=== PATIENT | male | born 1950 | race Caucasian/White ===

== ENCOUNTER → 2023-11-30 07:25 | Outpatient (REF) | payer BC, SELFPAY | LOC: RAD 07:25 | PROVIDERS: ATTENDING PHYSICIAN Physician Assistant | DX: H53.9 Unspecified visual disturbance (principal); R51.9 Headache, unspecified; I10 Essential (primary) hypertension; E78.5 Hyperlipidemia, unspecified | CPT/HCPCS: 70450 ==

== ENCOUNTER → 2023-12-24 20:10 | Outpatient (REF) | payer BC, SELFPAY | LOC: MRI 3T 20:10 | PROVIDERS: ATTENDING PHYSICIAN Internal Medicine; FAMILY PHYSICIAN Physician Assistant | DX: R29.810 Facial weakness (principal); R51.9 Headache, unspecified; R20.0 Anesthesia of skin | CPT/HCPCS: 70553; A9575 ==

== ENCOUNTER → 2024-03-14 10:27 | Outpatient (REF) | payer BC, SELFPAY | LOC: MRI 3T 10:27 | PROVIDERS: ATTENDING PHYSICIAN Psychiatry & Neurology Neurology; FAMILY PHYSICIAN Physician Assistant | DX: H54.7 Unspecified visual loss (principal) | CPT/HCPCS: 70544; 70549; A9585 ==

== ENCOUNTER 2024-04-24 10:50 | Emergency (ER) | payer BC, SELFPAY ==
[2024-04-24 10:52] VITALS: BP 123/78; BMI 30.6
[2024-04-24 11:58] LABS: % Basophils 0.5 % (0-2); % Eosinophils 1.7 % (0-6); % Immature Granulocytes 0.3 % (0-0.5); % Lymphocytes 23.3 % (20.5-51.1); % Monocytes 9.6 % (1.7-9.3); % Neutrophils 64.6 % (42.2-75.2); Absolute Eosinophils 0.1 10^3/uL (0-0.7); Absolute Lymphocytes 1.4 10^3/uL (1.2-3.4); Absolute Monocytes 0.6 10^3/uL (0.1-0.6); Absolute Neutrophils 3.8 10^3/uL (1.4-6.5); Hematocrit 41.2 % (39.0-52.0); Hemoglobin 14.4 g/dL (13.0-18.0); Nucleated Red Blood Cells % 0 % (-); Platelet Count 185 10^3/uL (130-400); Red Blood Cell Count 5.15 10^6/uL (4.70-6.10); Red Cell Dist. Width 13.4 % (11.5-14.5); White Blood Cell Count 5.9 10^3/uL (4.8-10.8)
[2024-04-24 12:14] VITALS: BP 117/78; BP 123/76; BP 127/77; PULSE 76; PULSE 82; PULSE 86
[2024-04-24 12:20] LABS: Troponin I < 0.012 ng/ml
[2024-04-24] MEDS: NSS 500 IV ×2 (12:26→12:52)
[2024-04-24 12:30] LABS: ALT (SGPT) 19 U/L (0-50); AST (SGOT) 24 U/L (17-59); Albumin 4.6 g/dl (3.5-5.0); Alkaline Phosphatase 70 U/L (38-126); Blood Urea Nitrogen 23 mg/dl (9-20); Calcium 9.4 mg/dl (8.4-10.2); Carbon Dioxide 23 mmol/L (22-30); Chloride 106 mmol/L (98-107); Creatine Phosphokinase 87 U/L (55-170); Estimated Creatinine Clearance 73 ml/min; Glucose 109 mg/dl (70-99); Potassium 4.5 mmol/L (3.5-5.1); Sodium 137 mmol/L (135-145); Total Bilirubin 0.8 mg/dl (0.2-1.3); eGFR > 60.00
--- NOTE | 2024-04-24 12:37 | ED.GENMED ---
History of Present Illness
<Tashia Brown PA-C - Last Filed: 04/29/24 18:08>
General
Chief Complaint: Fainting/Passed Out
Source: patient and family
Exam Limitations: none
Time Seen by Provider: 04/24/24 11:03
Nursing documentation reviewed up to this point in time: agreed with
History of Present Illness
History of Present Illness:
pt is a 73 y/o M with h/o HTN, hld, CVA with L eye vision loss and some facial numbness/weakness on aspirin
here with syncope this morning
pt says he did some exercise yesterday; more than usual with a 30 min walk and then rock climbing which he hasn't done in 2 months
he felt ok but then thi smornign when he woke up he felt tired, his legs felt generally tired
he told this to his at 7 am and she recommended he drink fluids and drink a liquid iv but he didn't
instead he went outside to water the garden and when he came back in he was bent over to pet the cat and stood up and felt dizzy/lightheaded and nearly fully passed out, falling into the closet doors; helped him to sit down
he was able to go to [employer] but while there he felt some nauesa and so his wanted him checked out
he has not had ehadache, room spinning dizziness
chest pain, shortness of breath, belly pain, diarrhea, urinary sypmtoms, focal weakness or numbness
he chronic has some facialnumbness from his previous stroke a few months ago
Past History
<Tashia Brown PA-C - Last Filed: 04/29/24 18:08>
Past History
ED Past Medical History: HTN, Hypercholesterolemia, Psychiatric (Depression), Other (prostate ca) and Other (Pituitary disorder)
ED Past Surgical History: Tonsilectomy, Urological (Prostatectomy) and Other (Right inguinal hernia repair)
Social History
Tobacco: Non-smoker
Alcohol: Occasional
Drug: None
Personal:
Living: with family
Employment: Employed
Family History
Family History: Early CAD
Review of Systems
<aTshia Brown PA-C - Last Filed: 04/29/24 18:08>
Review of Systems
Allergies reviewed?: Yes
All Other Systems: Not applicable
Phy Exam
<Tashia Brown PA-C - Last Filed: 04/29/24 18:08>
Physical Exam
Physical Exam:
GENERAL: Alert , in no apparent distress
HEAD: NCAT
EYE: pupils equal and reactive, no nystagmus, no photophobia
NECK: Supple,full rom, nontender
ENT: o/p clr, mmm.
CARDIAC: Regular rate and rhythm . no edema
LUNGS: Clear breath sounds bilaterally, no acute respiratory distress, no wheezes/rales/rhonchi
ABDOMEN: Soft, without focal tenderness, no r/g, no cvat
NEUROLOGICAL: Alert and orientedx 4, cn intact, very subtle flattening of L nasolabial fold; full strength; , 5/5 strength in UE/LE, sensation intact, romberg neg, ambulates without assistance, neg pronator drift
SKIN: Warm and dry, skin intact.
MUSCULOSKELETAL: No edema, well perfused.
PSYCH: Normal and appropriate interaction. perhaps mildly anxious
Course
<Tashia Brown PA-C - Last Filed: 04/29/24 18:08>
Orders/Labs/Results
Orders:
Orders
04/24/24 10:55
Electrocardiogram (*1) Urgent
Reason for Study: Chest Pain
EKG- Treatment ONCE
04/24/24 11:37
Orthostatic VS- Treatment ONCE
0.9% Sodium Chloride 500 ml [Nss] 500 ml IV BOLUS
04/24/24 11:47
CPK [Creatine Phosphokinase] Urgent
Complete Blood Count/With Diff Urgent
Comprehensive Metabolic Panel Urgent
Troponin I Urgent
04/24/24 12:46
0.9% Sodium Chloride 500 ml [Nss] 500 ml IV BOLUS
04/24/24 12:56
Urinalysis Reflex To Culture Urgent
Date Specimen was Collected: 04/24/24
Time Specimen was Collected: 12:03
04/24/24 14:34
COVID-19 Antigen Urgent
Source: Nasal Swab
04/24/24 14:45
Electrocardiogram (*1) Urgent
Reason for Study: Fatigue / Weakness
EKG- Treatment ONCE
CR Chest - 2 Views Urgent
Comment:
Reason For Exam: syncpoe
04/24/24 14:51
CT Head W/o Iv Contrast Urgent
Comment:
Reason For Exam: headache, lightheaded, passed out
04/24/24 15:15
0.9% Sodium Chloride 1000 ml [Nss] 1,000 ml IV BOLUS
04/24/24 16:35
Acetaminophen [Tylenol] 650 mg PO NOW STA
Abnormal Lab Results
04/24/24 04/24/24
11:47 12:56
Monocytes % 9.6 H %
(1.7-9.3)
BUN 23 H mg/dl
(9-20)
Glucose 109 H mg/dl
(70-99)
Urine Glucose 3+ A
(Negative)
04/24/24 11:47
04/24/24 11:47
Vital Signs
Initial and Last Documented VS:
Initial Vital Signs
Temp Pulse Resp BP Pulse Ox
98.4 F 86 20 123/78 99
04/24/24 10:52 04/24/24 10:52 04/24/24 10:52 04/24/24 10:52 04/24/24 10:52
Last Documented Vital Signs
Temp Pulse Resp BP Pulse Ox
98.5 F 86 16 115/71 99
04/24/24 17:47 04/24/24 17:47 04/24/24 17:47 04/24/24 17:47 04/24/24 17:47
<Florida Louis MD - Last Filed: 04/24/24 13:40>
Orders/Labs/Results
Orders:
Orders
04/24/24 10:55
Electrocardiogram (*1) Urgent
Reason for Study: Chest Pain
EKG- Treatment ONCE
04/24/24 11:37
Orthostatic VS- Treatment ONCE
0.9% Sodium Chloride 500 ml [Nss] 500 ml IV BOLUS
04/24/24 11:47
CPK [Creatine Phosphokinase] Urgent
Complete Blood Count/With Diff Urgent
Comprehensive Metabolic Panel Urgent
Troponin I Urgent
04/24/24 12:46
0.9% Sodium Chloride 500 ml [Nss] 500 ml IV BOLUS
04/24/24 12:56
Urinalysis Reflex To Culture Urgent
Date Specimen was Collected: 04/24/24
Time Specimen was Collected: 12:03
04/24/24 14:34
COVID-19 Antigen Urgent
Source: Nasal Swab
04/24/24 14:45
Electrocardiogram (*1) Urgent
Reason for Study: Fatigue / Weakness
EKG- Treatment ONCE
CR Chest - 2 Views Urgent
Comment:
Reason For Exam: syncpoe
04/24/24 14:51
CT Head W/o Iv Contrast Urgent
Comment:
Reason For Exam: headache, lightheaded, passed out
04/24/24 15:15
0.9% Sodium Chloride 1000 ml [Nss] 1,000 ml IV BOLUS
04/24/24 16:35
Acetaminophen [Tylenol] 650 mg PO NOW STA
Abnormal Lab Results
04/24/24 04/24/24
11:47 12:56
Monocytes % 9.6 H %
(1.7-9.3)
BUN 23 H mg/dl
(9-20)
Glucose 109 H mg/dl
(70-99)
Urine Glucose 3+ A
(Negative)
04/24/24 11:47
04/24/24 11:47
Vital Signs
Initial and Last Documented VS:
Initial Vital Signs
Temp Pulse Resp BP Pulse Ox
98.4 F 86 20 123/78 99
04/24/24 10:52 04/24/24 10:52 04/24/24 10:52 04/24/24 10:52 04/24/24 10:52
Last Documented Vital Signs
Temp Pulse Resp BP Pulse Ox
98.5 F 86 16 115/71 99
04/24/24 17:47 04/24/24 17:47 04/24/24 17:47 04/24/24 17:47 04/24/24 17:47
<WES Johnson - Last Filed: 04/24/24 23:24>
Orders/Labs/Results
Orders:
Orders
04/24/24 10:55
Electrocardiogram (*1) Urgent
Reason for Study: Chest Pain
EKG- Treatment ONCE
04/24/24 11:37
Orthostatic VS- Treatment ONCE
0.9% Sodium Chloride 500 ml [Nss] 500 ml IV BOLUS
04/24/24 11:47
CPK [Creatine Phosphokinase] Urgent
Complete Blood Count/With Diff Urgent
Comprehensive Metabolic Panel Urgent
Troponin I Urgent
04/24/24 12:46
0.9% Sodium Chloride 500 ml [Nss] 500 ml IV BOLUS
04/24/24 12:56
Urinalysis Reflex To Culture Urgent
Date Specimen was Collected: 04/24/24
Time Specimen was Collected: 12:03
04/24/24 14:34
COVID-19 Antigen Urgent
Source: Nasal Swab
04/24/24 14:45
Electrocardiogram (*1) Urgent
Reason for Study: Fatigue / Weakness
EKG- Treatment ONCE
CR Chest - 2 Views Urgent
Comment:
Reason For Exam: syncpoe
04/24/24 14:51
CT Head W/o Iv Contrast Urgent
Comment:
Reason For Exam: headache, lightheaded, passed out
04/24/24 15:15
0.9% Sodium Chloride 1000 ml [Nss] 1,000 ml IV BOLUS
04/24/24 16:35
Acetaminophen [Tylenol] 650 mg PO NOW STA
Abnormal Lab Results
04/24/24 04/24/24
11:47 12:56
Monocytes % 9.6 H %
(1.7-9.3)
BUN 23 H mg/dl
(9-20)
Glucose 109 H mg/dl
(70-99)
Urine Glucose 3+ A
(Negative)
04/24/24 11:47
04/24/24 11:47
Vital Signs
Initial and Last Documented VS:
Initial Vital Signs
Temp Pulse Resp BP Pulse Ox
98.4 F 86 20 123/78 99
04/24/24 10:52 04/24/24 10:52 04/24/24 10:52 04/24/24 10:52 04/24/24 10:52
Last Documented Vital Signs
Temp Pulse Resp BP Pulse Ox
98.5 F 86 16 115/71 99
04/24/24 17:47 04/24/24 17:47 04/24/24 17:47 04/24/24 17:47 04/24/24 17:47
<Tashia Borwn PA-C - Last Filed: 04/29/24 18:08>
MDM/Problems Addressed
Differential Diagnosis Includes:
syncope, near syncope, dizziness, orthostasis, vertigo, covid, electrolyte problems, rhabdo
MDM/Problems Addressed:
73 y/o M with h/o cva L facial numbness/vision changes chronically, htn, hld
no thinners, on baby asa
here with lightheadedness and legs feeling tired this morning
then passed out after kneeling down to pet the cat
has recovered but still feels lightheaded ana with walking
thinks he overdid it yesterday exercising
no trouble breathing, swallowing, no incontinence, no focal weakness
no headache
no chest pain
well appearing, mild anxious
exzm unremarkable
ambulates but seemed a little wobbly when he first stood up
neuro no focal deficits
ekg normal
pt's orthostatics were neg but pt was a little l.ightehaded with standing
suspect he was mildly orthostatic today causing his syncope
will hydrate and recheck
04/24/2024 1414 PM
labs reviewed, mild BUN elevated, normal hg; likely mild dehydration
trop neg
ivf given and pt tolerated walking well
cpk normal
seen by ed attending who agrees with d/c
return precautions
not mra of head/neck was normal last month as screenig becauseof his previous stroke
04/24/2024 1527 PM
Patient started complaining of a mild headache and when I reassessed him he just seemed like he could use another liter of fluid which is likely the cause of his lightheadedness. I did test him for COVID which was negative. Added on a chest x-ray
to evaluate for cardiomegaly
I anticipate discharge home
<WES Johnson - Last Filed: 04/24/24 23:24>
MDM/Problems Addressed
MDM/Problems Addressed:
73 y/o M with h/o cva L facial numbness/vision changes chronically, htn, hld
no thinners, on baby asa
here with lightheadedness and legs feeling tired this morning
then passed out after kneeling down to pet the cat
has recovered but still feels lightheaded ana with walking
thinks he overdid it yesterday exercising
no trouble breathing, swallowing, no incontinence, no focal weakness
no headache
no chest pain
well appearing, mild anxious
exzm unremarkable
ambulates but seemed a little wobbly when he first stood up
neuro no focal deficits
ekg normal
pt's orthostatics were neg but pt was a little l.ightehaded with standing
suspect he was mildly orthostatic today causing his syncope
will hydrate and recheck
04/24/2024 1414 PM
labs reviewed, mild BUN elevated, normal hg; likely mild dehydration
trop neg
ivf given and pt tolerated walking well
cpk normal
seen by ed attending who agrees with d/c
return precautions
not mra of head/neck was normal last month as screenig becauseof his previous stroke
04/24/2024 1527 PM
Patient started complaining of a mild headache and when I reassessed him he just seemed like he could use another liter of fluid which is likely the cause of his lightheadedness. I did test him for COVID which was negative. Added on a chest x-ray
to evaluate for cardiomegaly
I anticipate discharge home
1630: Received sign out pt feeling much better. CT head neg, chest neg . will d/c home as planned
<WES Johnson - Last Filed: 04/24/24 23:24>
*Critical Care Note
Total Time (30-74mins, 75-104mins- exclusive of procedures): Not Applicable
ED Attending Note
<Tashia Brown PA-C - Last Filed: 04/29/24 18:08>
-
Portions of this chart may have been created with voice recognition software.� Occasional wrong word or��sound alike� substitutions may have occurred due to the inherent limitations of voice recognition software.
<[place] Louis MD - Last Filed: 04/24/24 13:40>
ED Attending Note
Patient seen and examined by attending physician: Yes
I performed the substantive portion of visit, reviewed & personally made and approve the management plan that is documented in note by myself or MARLO.: Yes
ED Attending Note:
Patient has a normal neurological exam. Symptoms sound very consistent with presyncope. Patient denies any focal weakness, numbness or any vision changes. We will reassess the patient after he gets IV fluids.
Discharge Plan
Departure
Patient Disposition: Home (Routine Discharge)
Date of Disposition: 04/24/24
Time of Disposition: 17:36
Patient with high blood pressure during this ER visit?: No
Condition: Fair
Covid-19: Not Applicable
Discharge Problem:
Syncope, Dehydration
Instructions: Syncope (Fainting) (DC), Dehydration, Adult ED
Prescriptions:
No Action
multivitamin 1 EACH tablet
2 ea PO DAILY
Patient Comments:
Metabolic Synergy
aspirin 81 MG tablet,delayed release (DR/EC)
81 mg PO DAILY
atenolol 50 MG tablet
50 mg PO DAILY
Patient Comments:
magnesium 500 mg Tablet
500 mg PO DAILY
pravastatin 40 mg Tablet
40 mg PO DAILY
Chelated Calcium 500 mg Tablet
1 mg PO DAILY
niacinamide 500 mg Tablet
500 mg PO DAILY
lisinopril 40 mg Tablet
40 mg PO DAILY
escitalopram oxalate 5 mg Tablet
5 mg PO DAILY
Referrals:
Shannon Mendoza PA-C [Family Provider] -
Activity Restrictions/Additional Instructions:
It seems like her symptoms are probably related to mild dehydration and passing out likely because he stood up fast and dropped her blood pressure. You should make sure to avoid sudden movements like that, stay hydrated, eat a well-balanced diet.
Watch for any worsening symptoms like ascending weakness of your body, trouble breathing or swallowing, chest pain or shortness of breath, repeated passing out episodes, headache or strokelike symptoms and return immediately for these
Otherwise follow-up with your family doctor
Interventions
Interventions:
*Risk Screen - Suicide Last Done: 04/24/24 10:52
*General Assessment Last Done: 04/24/24 12:08
*Neglect/Abuse Screening Last Done: 04/24/24 10:52
ED- Fall Risk Assessment Last Done: 04/24/24 10:52
*ED COVID-19 Vaccine History Last Done: 04/24/24 12:08
*Nursing Disposition Last Done: 04/24/24 17:47
ED- Cardiac Assessment Last Done: 04/24/24 12:08
ED- Neurological Assessment Last Done: 04/24/24 12:08
Discharge Date and Time
Discharge Date/Time: 04/24/24 17:51
Print Language: DUTCH
[2024-04-24 13:00] VITALS: BP 125/83
[2024-04-24 13:09] LABS: Urine Albumin Negative (Neg - Trace); Urine Bilirubin Negative (Negative); Urine Character Clear (Clear); Urine Color Yellow; Urine Glucose 3+ (Negative); Urine Ketone Negative (Negative); Urine Leukocyte Negative (Negative); Urine Nitrite Negative (Negative); Urine Occult Blood Negative (Negative); Urine Urobilinogen Negative (Neg - 1+)
[2024-04-24 14:34] VITALS: BP 111/79
[2024-04-24 14:59] LABS: COVID-19 Antigen Negative (Negative)
[2024-04-24] MEDS: NSS 1000 IV (15:59)
[2024-04-24 16:08] VITALS: BP 123/83
[2024-04-24] MEDS: TYLENOL 650 MG PO (16:40)
[2024-04-24 17:47] VITALS: BP 115/71
== END 2024-04-24 17:51 | disposition home or self-care (01) ==
LOC: EMR 10:50
PROVIDERS: Emergency Medicine; Physician Assistant; EMERGENCY PHYSICIAN Emergency Medicine; FAMILY PHYSICIAN Physician Assistant
DX: R55 Syncope and collapse (principal); E86.0 Dehydration; I10 Essential (primary) hypertension; E78.00 Pure hypercholesterolemia, unspecified
CPT/HCPCS: 99285; 96360; 96361; 70450; 71046; 80053; 81003; 82550; 84484; 85025; 87811; 93005

== ENCOUNTER → 2024-06-13 06:18 | Day surgery (SDC) | payer BC, SELFPAY ==
[2024-06-13 07:49] LABS: Glucose - Point of Care 114 mg/dl (70-99)
== END ==
LOC: GI 06:18
PROVIDERS: ATTENDING PHYSICIAN Internal Medicine Gastroenterology
DX: Z12.11 Encounter for screening for malignant neoplasm of colon (principal); K64.8 Other hemorrhoids; R12 Heartburn
CPT/HCPCS: 43235; G0121; 82962

== ENCOUNTER 2024-10-22 18:31 | Emergency (ER) | payer BC, SELFPAY ==
[2024-10-22 18:35] VITALS: BP 141/85
--- NOTE | 2024-10-22 20:48 | ED.MUSCINJ ---
HPI-Injury
General
Chief Complaint: Musculo-Skeletal Complaint
Source: patient
Exam Limitations: none
Time Seen by Provider: 10/22/24 20:32
History of Present Illness-Injury
Initial Injury comments:
74-year-old male presents complaining of left posterior buttock pain. He is stepping up with his left foot to step onto a step and he felt a pop in his hamstring right underneath his pelvis. He had similar injury several months ago. He started to
having some ache over the last several days in the same area. No chest pain or shortness of breath. No calf pain. He has been able to walk with crutches. No other complaints at this time
Past History
Past History
ED Past Medical History: HTN, Hypercholesterolemia, Psychiatric (Depression), Other (prostate ca) and Other (Pituitary disorder)
ED Past Surgical History: Tonsilectomy, Urological (Prostatectomy) and Other (Right inguinal hernia repair)
Social History
Tobacco: Non-smoker
Alcohol: Occasional
Drug: None
Personal:
Living: with family
Employment: Employed
Family History
Family History: Early CAD
Phy Exam
Physical Exam
Physical Exam:
General: Well-appearing male no acute respiratory distress HEENT: Normocephalic atraumatic
Heart: RRR, no murmurs
Lungs: CTA bilaterally
Ext; no cyanosis
MSK: Tender over the left posterior hamstring proximally just inferior to the pelvis no calf tenderness or swelling. No ecchymosis noted currently. He is able to flex his knee
Vascular: 2+ dorsalis pedis pulse bilateral feet
Injury Course
Orders/Labs/Results
Orders:
Orders
10/22/24 20:47
Cyclobenzaprine HCl [Flexeril] 10 mg PO NOW STA
MDM/Problems Addressed
Differential Diagnosis Includes:
Left hamstring discomfort suspect strain versus tear versus rupture of tendon. Do not suspect DVT given the mechanism.
Recommend anti-inflammatories and muscle relaxers. He will follow-up with his orthopedic doctor for further evaluation
*Critical Care Note
Total Time (30-74mins, 75-104mins- exclusive of procedures): Not Applicable
ED Attending Note
-
Portions of this chart may have been created with voice recognition software.� Occasional wrong word or��sound alike� substitutions may have occurred due to the inherent limitations of voice recognition software.
Discharge Plan
Departure
Patient Disposition: Home (Routine Discharge)
Date of Disposition: 10/22/24
Time of Disposition: 20:53
Patient with high blood pressure during this ER visit?: No
Discharge Problem:
Hamstring strain
Instructions: Muscle and Bone Pain (DC)
Prescriptions:
New
cyclobenzaprine 10 mg tablet
10 mg PO TID PRN (Reason: muscle spasm) Qty: 10 0RF
No Action
multivitamin 1 EACH tablet
2 ea PO DAILY
Patient Comments:
Metabolic Synergy
aspirin 81 MG tablet,delayed release (DR/EC)
81 mg PO DAILY
atenolol 50 MG tablet
50 mg PO DAILY
Patient Comments:
magnesium 500 mg Tablet
500 mg PO DAILY
pravastatin 40 mg Tablet
40 mg PO DAILY
Chelated Calcium 500 mg Tablet
1 mg PO DAILY
niacinamide 500 mg Tablet
500 mg PO DAILY
lisinopril 40 mg Tablet
40 mg PO DAILY
escitalopram oxalate 5 mg Tablet
5 mg PO DAILY
Referrals:
Shannon Mendoza PA-C [Family Provider] -
Activity Restrictions/Additional Instructions:
Use warm compresses. Use muscle relaxers as needed and anti-inflammatories as needed. Use crutches if needed for support. Return if worse otherwise follow-up with orthopedics
Interventions
Interventions:
*Risk Screen - Suicide Last Done: 10/22/24 18:35
*Neglect/Abuse Screening Last Done: 10/22/24 18:35
Discharge Date and Time
Print Language: [id number]
[2024-10-22] MEDS: FLEXERIL 10 MG PO (20:56)
== END 2024-10-22 21:32 | disposition home or self-care (01) ==
LOC: EMR 18:31
PROVIDERS: EMERGENCY PHYSICIAN Emergency Medicine; FAMILY PHYSICIAN Physician Assistant
DX: S76.912A Strain of unspecified muscles, fascia and tendons at thigh level, left thigh, initial encounter (principal); X58.XXXA Exposure to other specified factors, initial encounter; I10 Essential (primary) hypertension; E78.00 Pure hypercholesterolemia, unspecified; F32.A Depression, unspecified; Z82.49 Family history of ischemic heart disease and other diseases of the circulatory system; Z85.46 Personal history of malignant neoplasm of prostate; Z90.79 Acquired absence of other genital organ(s)
CPT/HCPCS: 99282

== ENCOUNTER 2024-12-28 18:35 | Observation (INO) | payer BC, SELFPAY ==
[2024-12-28] VITALS (8 sets, daily range): BP systolic 117–134; BP diastolic 68–91; BMI 29.5
--- NOTE | 2024-12-28 12:28 | ED.GENMED ---
History of Present Illness
<WES Johnson - Last Filed: 12/28/24 17:47>
General
Chief Complaint: Fall
Source: patient
Exam Limitations: none
Time Seen by Provider: 12/28/24 12:04
Nursing documentation reviewed up to this point in time: agreed with
History of Present Illness
History of Present Illness:
Patient is a 74-year-old male with past medical history of stroke presents to the ER for evaluation. Patient does report he had a stroke last Oct 2023 since then he is on aspirin a day and has been seen by neurology( DR Melchor as outpt ) Patient
reports this morning around 8: 45 he was getting off the train and his left leg gave out and he fell landing on his hands. He did not hit his head. is very concerned because of his left leg giving out and went to make sure this was not a
stroke. He denies any weakness in legs including left leg. He denies any upper or lower extremity weakness now. He got up after the fall and walk several blocks back to his house. He reports however that he is anxious over his previous stroke
and does have mild headache and feels a little pressure in the left side of his face(like a hand is pressing on my face,' which is what prompted him to come to the ER He denies any visual deficits. He is not on blood thinners other than aspirin.
He denies any numbness tingling to the left face or upper or lower extremities.
Past History
<WES Johnson - Last Filed: 12/28/24 17:47>
Past History
ED Past Medical History: HTN, Hypercholesterolemia, Psychiatric (Depression), Other (prostate ca) and Other (Pituitary disorder)
ED Past Surgical History: Tonsilectomy, Urological (Prostatectomy) and Other (Right inguinal hernia repair)
Social History
Tobacco: Non-smoker
Alcohol: Occasional
Drug: None
Personal:
Living: with family
Employment: Employed
Family History
Family History: Early CAD
Review of Systems
<WES Johnson - Last Filed: 12/28/24 17:47>
Review of Systems
Allergies reviewed?: Yes
All Other Systems: ROS reviewed and negative except as documented in HPI and ROS
Constitutional: Reports no symptoms
EENT: Reports no symptoms
Respiratory: Reports no symptoms
Cardiac: Reports no symptoms
ABD/GI: Reports no symptoms; Denies abdominal pain, nausea or vomiting
Musculoskeletal: Reports no symptoms
Skin: Reports no symptoms
Neurological: Reports other (feels pressure to left side of face, feels slightly weaker to left arm/leg ); Denies headache
Psychiatric: Reports no symptoms
Phy Exam
<WES Jhonson - Last Filed: 12/28/24 17:47>
General Physical Exam
General Presentation: no apparent distress
General age: appears stated age
General Skin: warm and dry
General Habitus: normal
General Mental: alert
General Hydration: appears well hydrated
ENT Exam
ENT Exam: EOMI and neck supple
Eye Exam
Eye Exam: PERRL
Eye Exam General: PERRL: bilateral and EOM intact: bilateral
Pupil Exam: Bilateral: round and reactive
Cardiovascular Exam
Cardiovascular Exam: regular rate/rhythm, no murmur and normal peripheral pulses
Pulmonary Exam
Pulmonary Exam: lungs clear and no respiratory distress
Neurological Exam
Neurological Exam: alert, oriented x3, no motor deficits, no sensory deficits and speech normal
[place] Coma Scale
Eye Opening: Spontaneous
Verbal Response: Oriented
Motor Response: Obeys Commands
GCS Total Score: 15
Cerebellar
Cerebellar Function: normal finger to nose
Musculoskeletal Exam
Musculoskeletal Exam: full ROM
Skin Exam
Skin Exam: normal color and warm/dry
Psychiatric Exam
Psychiatric Exam: normal mood/affect
Course
<WES Johnson - Last Filed: 12/28/24 17:47>
Orders/Labs/Results
Orders:
Orders
12/28/24 12:23
CT Head W/o Iv Contrast Urgent
Comment:
Reason For Exam: headache
12/28/24 14:32
Cardiac Monitoring- Treatment ONCE
12/28/24 14:33
Electrocardiogram (*1) Stat
Reason for Study: Other
Other Reason for Exam: neuro symptoms
EKG- Treatment ONCE
12/28/24 14:44
Complete Blood Count/With Diff Urgent
Comprehensive Metabolic Panel Urgent
Troponin I Urgent
12/28/24 16:01
Aspirin Chewable [Low Strength Aspirin] 324 mg PO NOW STA
Abnormal Lab Results
12/28/24
14:44
BUN 25 H mg/dl
(9-20)
Glucose 101 H mg/dl
(70-99)
Albumin 5.1 H g/dl
(3.5-5.0)
12/28/24 14:44
12/28/24 14:44
Vital Signs
Initial and Last Documented VS:
Initial Vital Signs
Temp Pulse Resp BP Pulse Ox
97.3 F 74 16 125/82 98
12/28/24 11:33 12/28/24 11:33 12/28/24 11:33 12/28/24 11:33 12/28/24 11:33
Last Documented Vital Signs
Temp Pulse Resp BP Pulse Ox
97.3 F 65 13 134/88 98
12/28/24 11:33 12/28/24 17:00 12/28/24 17:00 12/28/24 17:00 12/28/24 17:00
Learning Support Aide consulted with Physician
Learning Support Aide consulted with physician?: Yes
Name of Physician Consulted: DR Corado
<Andrew Corado MD - Last Filed: 12/28/24 16:01>
Orders/Labs/Results
Orders:
Orders
12/28/24 12:23
CT Head W/o Iv Contrast Urgent
Comment:
Reason For Exam: headache
12/28/24 14:32
Cardiac Monitoring- Treatment ONCE
12/28/24 14:33
Electrocardiogram (*1) Stat
Reason for Study: Other
Other Reason for Exam: neuro symptoms
EKG- Treatment ONCE
12/28/24 14:44
Complete Blood Count/With Diff Urgent
Comprehensive Metabolic Panel Urgent
Troponin I Urgent
12/28/24 16:01
Aspirin Chewable [Low Strength Aspirin] 324 mg PO NOW STA
Abnormal Lab Results
12/28/24
14:44
BUN 25 H mg/dl
(9-20)
Glucose 101 H mg/dl
(70-99)
Albumin 5.1 H g/dl
(3.5-5.0)
12/28/24 14:44
12/28/24 14:44
Vital Signs
Initial and Last Documented VS:
Initial Vital Signs
Temp Pulse Resp BP Pulse Ox
97.3 F 74 16 125/82 98
12/28/24 11:33 12/28/24 11:33 12/28/24 11:33 12/28/24 11:33 12/28/24 11:33
Last Documented Vital Signs
Temp Pulse Resp BP Pulse Ox
97.3 F 65 13 134/88 98
12/28/24 11:33 12/28/24 17:00 12/28/24 17:00 12/28/24 17:00 12/28/24 17:00
<WES Johnson - Last Filed: 12/28/24 17:47>
MDM/Problems Addressed
MDM/Problems Addressed:
As documented patient is a 74-year-old male who was getting off the train and his left leg gave out. He was concerned about a stroke and presented here to the ER. He does have a history of strokes. Patient denies any headache or other trauma.
presented and noted that patient seems to have left-sided facial droop. Initially it was not able to appreciate an obvious droop or weakness. Case discussed ED physician evaluated patient and does question mild left-sided facial droop and
left weakness. Patient does have a history of weakness from his left-sided stroke in the past.
Patient's CAT scan was negative. Patient was evaluated by neurology Dr. Springer who does recommend admission , feels that this may be anxiety, polyneuropathy or worsening of pre-existing mild hemiparesis. Case discussed admitting
Chronic conditions affecting care:
Previous stroke history on aspirin only
<WES Johnson - Last Filed: 12/28/24 17:47>
*Radiology
Radiology exam reviewed: radiology read reviewed
*Pulse Oximetry
Patient hypoxic: no
*EKG
Interpreted by ED Provider?: Yes
Interpretation: normal
Comparison EKG: no changes
Heart Rate: 60
Rate: normal
Rhythm: sinus
Ischemia: no ischemia
*Critical Care Note
Total Time (30-74mins, 75-104mins- exclusive of procedures): Not Applicable
<WES Johnson - Last Filed: 12/28/24 17:47>
Patient Management
Discussion with other providers: Cost Accounting Clerk (neuro DR Springer )
ED Attending Note
<WES Johnson - Last Filed: 12/28/24 17:47>
-
Portions of this chart may have been created with voice recognition software.� Occasional wrong word or��sound alike� substitutions may have occurred due to the inherent limitations of voice recognition software.
<Andrew Corado MD - Last Filed: 12/28/24 16:01>
ED Attending Note
Patient seen and examined by attending physician: Yes
ED Attending Note:
I have seen and evaluated the patient with a [id number] encounter. I have spoken to the advance practicer provider and involved in the medical history, the physical exam, medical decision making.
Evaluation and management service: agree unless noted differently below.
Results interpretation: agree unless noted differently below.
Focused HPI: 74-year-old male with past medical history of CVA, hypertension, hyperlipidemia presents to the ER with his for evaluation of facial droop, weakness on the left side. Patient reports that he was getting off the train this morning
around 8:45 AM when he felt like his left leg was weak and it caused him to have a minor fall. No serious trauma or injury from fall. He disclosed his symptoms to his who recommended that he come to the hospital to be evaluated. When she met
him at the hospital she noted that he had a facial droop on the left side and was concern for stroke. In addition to above symptoms he says he feels some slight blurry vision on the left. Denies headache. Denies dizziness. He is on aspirin but
no other blood thinners.
Physical exam: Awake and alert no distress. Vital signs normal. He has left-sided facial droop. Cranial nerves otherwise intact. No limb ataxia. Speech is fluid with no dysarthria or aphasia. He has some subtle weakness left orthopedic cast specialist strength and
some proximal weakness in the left leg when compared to the right.
Medical Decision Makin-year-old male presents with left leg weakness and facial droop; also has some subtle orthopedic cast specialist weakness on the left on exam. He does have prior history of stroke and is on aspirin. Labs unremarkable, EKG shows sinus rhythm.
CT head negative for acute abnormality. 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 Patient outside window for tenecteplase.
Discharge Plan
Departure
Patient Disposition: Admit
Date of Disposition: 12/28/24
Time of Disposition: 17:33
Admit to: Med/Surg
Admit to doctor: [email or web address]
Presentation/result/management discussed w/ accepting MD/DO: Hospitalist
Condition: Fair
Covid-19: Not Applicable
Discharge Problem:
Left leg weakness
Prescriptions:
No Action
aspirin 81 MG tablet,delayed release (DR/EC)
81 mg PO HS
atenolol 50 MG tablet
50 mg PO DAILY
lisinopril 40 mg Tablet
40 mg PO HS
escitalopram oxalate 5 mg Tablet
5 mg PO DAILY
cyanocobalamin (vitamin B-12) 1,000 mcg Tablet
1,000 mcg PO DAILY
travoprost 0.004 % Drops
1 drp BOTH EYES HS
Theragen Tablet
1 tab PO BID
Benefiber (guar gum) Packet
2 tbsp PO DAILY
pravastatin 80 mg Tablet
80 mg PO DAILY
amitriptyline 10 mg Tablet
30 mg PO HS
ascorbate calcium (vitamin C) [Niurka-C] 500 mg Tablet
500 mg PO DAILY
magnesium oxide 500 mg magnesium Tablet
500 mg PO DAILY
vitamin E 268 mg (400 unit) Capsule
268 mg PO BID
Visbiome 112.5 billion cell Capsule
1 cap PO DAILY
Jardiance 25 mg Tablet
25 mg PO DAILY
Referrals:
Shannon Mendoza PA-C [Family Provider] -
Interventions
Interventions:
*Risk Screen - Suicide Last Done: 12/28/24 11:37
*General Assessment Last Done: 12/28/24 11:37
*Neglect/Abuse Screening Last Done: 12/28/24 11:37
*ED- Fall Risk Assessment Last Done: 12/28/24 16:54
*ED COVID-19 Vaccine History Last Done: 12/28/24 12:07
ED-Musculoskeletal Assessment Last Done: 12/28/24 12:07
ED- Neurological Assessment Last Done: 12/28/24 17:03
ED-Skin Assessment Last Done: 12/28/24 12:07
Discharge Date and Time
Print Language: SLOVAK
[2024-12-28 15:11] LABS: % Basophils 0.5 % (0-2); % Eosinophils 2.9 % (0-6); % Immature Granulocytes 0.3 % (0-0.5); % Lymphocytes 32.1 % (20.5-51.1); % Monocytes 8.4 % (1.7-9.3); % Neutrophils 55.8 % (42.2-75.2); Absolute Eosinophils 0.2 10^3/uL (0-0.7); Absolute Lymphocytes 1.9 10^3/uL (1.2-3.4); Absolute Monocytes 0.5 10^3/uL (0.1-0.6); Absolute Neutrophils 3.3 10^3/uL (1.4-6.5); Hematocrit 47.2 % (39.0-52.0); Mean Corp Hgb Conc. 33.9 g/dL (33.0-37.0); Mean Corpuscular Hgb 27.6 pg (27.0-31.0); Mean Corpuscular Volume 81.5 fL (80.0-94.0); Mean Platelet Volume 9.5 fL (7.4-10.4); Nucleated Red Blood Cells % 0 % (-); Platelet Count 155 10^3/uL (130-400); Red Blood Cell Count 5.79 10^6/uL (4.70-6.10); Red Cell Dist. Width 13.5 % (11.5-14.5); White Blood Cell Count 5.8 10^3/uL (4.8-10.8)
[2024-12-28 15:18] LABS: ALT (SGPT) 23 U/L (0-50); AST (SGOT) 25 U/L (17-59); Albumin 5.1 g/dl (3.5-5.0); Alkaline Phosphatase 77 U/L (38-126); Blood Urea Nitrogen 25 mg/dl (9-20); Calcium 9.8 mg/dl (8.4-10.2); Carbon Dioxide 27 mmol/L (22-30); Chloride 103 mmol/L (98-107); Estimated Creatinine Clearance 64 ml/min; Glucose 101 mg/dl (70-99); Potassium 4.4 mmol/L (3.5-5.1); Sodium 140 mmol/L (135-145); Total Bilirubin 0.9 mg/dl (0.2-1.3); Total Protein 7.8 g/dl (6.3-8.2); eGFR > 60.00
[2024-12-28 15:29] LABS: Troponin I < 0.012 ng/ml
[2024-12-28] MEDS: LOW STRENGTH ASPIRIN 324 MG PO (16:07)
--- NOTE | 2024-12-28 16:25 | CON.NEURO ---
Consultation
Order
Date of Consultation: 12/28/24
Requesting Provider: Zeinab David
Reason for Consult: Left leg weakness
Neurology Consultation Note.
HPI: This is a 74-year-old man who presented to [facility] on 12/29/2023 with left leg weakness.
According to the patient this morning, while disembarking from a train from [place], his left leg gave way, causing him to fall onto his hands and knees. He was able to walk home afterward, but his leg didn't feel '100%' for approximately an
hour. The patient denies any associated left arm weakness, sensory changes, tingling, numbness, headache or knee pain. Mr. Wick reports worsening of his chronic neck pain on the left side and some back pain following the incident. The patient
also mentions that his vision seems 'a little questionable' but denies any difficulties with swallowing or speech changes.
The patient has a history of left transient visual loss and facial weakness in 2023. He initially attributed these symptoms to his previous LASIK surgery. He was seen by neurology and felt to have TIA. The facial weakness, which was subtle,
reportedly has improved over the past year.
Mr. Wick was seen at ER on 10/22/2024 for left posterior buttock pain following rockclimbing and was diagnosed with the hamstrings strain.
ER VS: 125/82, 74, afebrile
EKG: NSR, QTc Int : 416 ms
PDMP: None
Labs: glucose�101, normal sodium, creatinine, WBCs, platelets
CT head wo contrast�no acute abnormality.
PMH: Prostate cancer, Rathke cyst, HTN, DLP, ANTOINE, MDD, BPPV, ABELARDO
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
FH: Mother�hearing impairment
All:NKDA
ROS: Constitutional: Negative. Negative for chills, fever and unexpected weight change.
HENT: Positive for chronic hearing impairment
Eyes: Negative. Negative for photophobia, pain and visual disturbance.
Respiratory: Negative for cough, choking and shortness of breath.
Cardiovascular: Negative for chest pain, palpitations and leg swelling.
Gastrointestinal: Negative for abdominal pain and vomiting.
Endocrine: Negative. Negative for cold intolerance.
Musculoskeletal: Positive for neck pain and stiffness, chronic back pain
Skin: Negative for rash.
Allergic/Immunologic: Negative. Negative for immunocompromised state.
Neurological: Positive for transient left leg weakness, chronic left hemiparesis
Psychiatric/Behavioral: Positive for anxiety
General: Well developed. In no acute distress.
Cardio: Regular rate and rhythm without murmur. Extremities are without cyanosis or edema.
Neuro:
Mental Status: Alert, oriented to person, place, and date. Normal attention and recall. Good fund of knowledge. Follows complex requests across the midline. Comprehension, naming, and repetition intact. Anxious mood
Cranial Nerves: Pupils are equally round and reactive to light. EOMs full. Visual shetty full to confrontation. No ptosis. No nystagmus. V1-V3 intact to light touch and pinprick bilaterally, symmetric. Left nasolabial fold flattening impaired
hearing AU. The palate elevated well. SCMs and traps 5/5. Tongue midline. No dysarthria.
Motor: Normal bulk and tone. No pronator or arm drift. Strength 5/5 throughout except for a minimal left arm and leg weakness. No clonus.
Reflexes: 2+ throughout the upper extremities and 1+knees. Plantar responses flexor bilaterally.
Sensory: Absent vibration at the toes and reduced at the ankles
Coordination: No dysmetria or tremor.
Gait: deferred
Assessment and Plan:
I. Right LUAN TIA vs mechanical fall
II. History of prostate cancer
II. Distal symmetric polyneuropathy
-Continue Telemetry monitoring
-Fall precautions
-Brain MRI without antoine
-Continue Plavix 75 mg QD
-Lipitor 40 mg QHS.
-Please check HbA1C, LDL.
-LS spine MRI w/wo antoine if brain MRI is unremarkable in view of history of prostate cancer
-OP NSC/EMG of BL LEs
-Polyneuropathy blood work
-PT.
-DVT prophylaxis.
I personally reviewed all radiology and labs along with past medical records pertinent to current medical problems. Total time spent in patient care is 60 minutes.
Thank you for allowing us to participate in the care of this patient. We will continue to follow. Please do not hesitate to contact us with any questions or concerns.
Subjective/Objective
Subjective Data
Date of Service: December 28, 2024
Objective Data
Vital Signs
Temp Pulse Resp BP Pulse Ox
36.3 C 68 14 120/86 97
12/28/24 11:33 12/28/24 15:30 12/28/24 15:30 12/28/24 15:00 12/28/24 15:30
Lab Results
12/28/24 14:44
12/28/24 14:44
Sodium 140 mmol/L (135-145) 12/28/24 14:44
Potassium 4.4 mmol/L (3.5-5.1) 12/28/24 14:44
BUN 25 mg/dl (9-20) H 12/28/24 14:44
Glucose 101 mg/dl (70-99) H 12/28/24 14:44
Calcium 9.8 mg/dl (8.4-10.2) 12/28/24 14:44
Patient Allergies
environmental Allergy (Uncoded 12/28/24 11:37)
itchy eyes, sneezing
Medications
-
Home Medications
�Medication �Instructions �Recorded
aspirin 81 mg tablet,delayed 81 mg PO HS 02/27/10
release
atenolol 50 mg tablet 50 mg PO DAILY 10/22/15
escitalopram oxalate 5 mg tablet 5 mg PO DAILY 04/24/24
lisinopril 40 mg tablet 40 mg PO HS 04/24/24
Lactobac no.2-Bifidobac no.1-S. 1 cap PO DAILY 12/28/24
thermo 112.5 billion cell capsule
(Visbiome)
amitriptyline 10 mg tablet 30 mg PO HS 12/28/24
ascorbate calcium (vitamin C) 500 500 mg PO DAILY 12/28/24
mg tablet
cyanocobalamin (vitamin B-12) 1,000 mcg PO DAILY 12/28/24
1,000 mcg tablet
empagliflozin 25 mg tablet 25 mg PO DAILY 12/28/24
(Jardiance)
guar gum 2 tbsp PO DAILY 12/28/24
magnesium oxide 500 mg PO DAILY 12/28/24
pravastatin 80 mg tablet 80 mg PO DAILY 12/28/24
therapeutic multivitamin 1 tab PO BID 12/28/24
travoprost 0.004 % eye drops 1 drp BOTH EYES HS 12/28/24
vitamin E 268 mg (400 unit) capsule 268 mg PO BID 12/28/24
Vital Signs and Labs
-
Vital Signs and Labs:
Vital Signs
Temp Pulse Resp BP Pulse Ox
36.3 C 68 14 120/86 97
12/28/24 11:33 12/28/24 15:30 12/28/24 15:30 12/28/24 15:00 12/28/24 15:30
Lab Results
12/28/24 14:44
12/28/24 14:44
Sodium 140 mmol/L (135-145) 12/28/24 14:44
Potassium 4.4 mmol/L (3.5-5.1) 12/28/24 14:44
BUN 25 mg/dl (9-20) H 12/28/24 14:44
Glucose 101 mg/dl (70-99) H 12/28/24 14:44
Calcium 9.8 mg/dl (8.4-10.2) 12/28/24 14:44
Home Medications
-
Home Medications
aspirin 81 mg tablet,delayed release 81 mg PO HS 02/27/10
atenolol 50 mg tablet 50 mg PO DAILY 10/22/15
escitalopram oxalate 5 mg tablet 5 mg PO DAILY 04/24/24
lisinopril 40 mg tablet 40 mg PO HS 04/24/24
Lactobac no.2-Bifidobac no.1-S. thermo 112.5 billion cell capsule (Visbiome) 1 cap PO DAILY 12/28/24
amitriptyline 10 mg tablet 30 mg PO HS 12/28/24
ascorbate calcium (vitamin C) 500 mg tablet 500 mg PO DAILY 12/28/24
cyanocobalamin (vitamin B-12) 1,000 mcg tablet 1,000 mcg PO DAILY 12/28/24
empagliflozin 25 mg tablet (Jardiance) 25 mg PO DAILY 12/28/24
guar gum 2 tbsp PO DAILY 12/28/24
magnesium oxide 500 mg PO DAILY 12/28/24
pravastatin 80 mg tablet 80 mg PO DAILY 12/28/24
therapeutic multivitamin 1 tab PO BID 12/28/24
travoprost 0.004 % eye drops 1 drp BOTH EYES HS 12/28/24
vitamin E 268 mg (400 unit) capsule 268 mg PO BID 12/28/24
--- NOTE | 2024-12-28 18:16 | HPS.HSE ---
Family Physician
-
Family Physician: Shannon Mendoza
Chief Complaint
-
Left-sided weakness
History of Present Illness
74-year-old male was stepping off a train this morning and his left leg gave out. He fell onto his hands and knees. No loss of consciousness. He subsequently got up and was able to walk 3 blocks back to his home but felt that he was not steady
with walking.
His got concerned about possible left-sided facial droop.
He came into the emergency room for evaluation of possible stroke. He states that he had a stroke last year that was not noted on a brain MRI. He is followed by neurology as an outpatient.
Medical History
Past Medical History
Past Medical History: Reports Other
Additional Past Medical History:
Prostate cancer -prostatectomy, radiation
Essential hypertension
Rathke cyst
Generalized anxiety disorder
ABELARDO
BPPV
Hyperlipidemia
Depression
Past Surgical History: Reports Other
Additional Past Surgical History:
Radical prostatectomy 2016
Social History
Tobacco: Non-smoker
Alcohol: None
Drug: None
Personal:
Living: With Family
Family History
Family History: Not pertinent
Allergies / Home Medications
Allergies reflects when Allergies were last updated in [facility].
Home Medications with original date entered in [facility]
Allergy/Medication List:
Allergies
Allergy/AdvReac Type Severity Reaction Status Date / Time
environmental Allergy itchy Uncoded 12/28/24 11:37
eyes,
sneezing
Home Medications
aspirin 81 mg tablet,delayed release 81 mg PO HS 02/27/10
atenolol 50 mg tablet 50 mg PO DAILY 10/22/15
escitalopram oxalate 5 mg tablet 5 mg PO DAILY 04/24/24
lisinopril 40 mg tablet 40 mg PO HS 04/24/24
Lactobac no.2-Bifidobac no.1-S. thermo 112.5 billion cell capsule (Visbiome) 1 cap PO DAILY 12/28/24
amitriptyline 10 mg tablet 30 mg PO HS 12/28/24
ascorbate calcium (vitamin C) 500 mg tablet 500 mg PO DAILY 12/28/24
cyanocobalamin (vitamin B-12) 1,000 mcg tablet 1,000 mcg PO DAILY 12/28/24
empagliflozin 25 mg tablet (Jardiance) 25 mg PO DAILY 12/28/24
guar gum 2 tbsp PO DAILY 12/28/24
magnesium oxide 500 mg PO DAILY 12/28/24
pravastatin 80 mg tablet 80 mg PO DAILY 12/28/24
therapeutic multivitamin 1 tab PO BID 12/28/24
travoprost 0.004 % eye drops 1 drp BOTH EYES HS 12/28/24
vitamin E 268 mg (400 unit) capsule 268 mg PO BID 12/28/24
Review of Systems
-
History Source: Patient
A 12 point ROS was completed and negative except as noted: Yes
Physical Exam
Vital Signs
Vital Signs
Temp Pulse Resp BP Pulse Ox
97.3 F 65 13 134/88 98
12/28/24 11:33 12/28/24 17:00 12/28/24 17:00 12/28/24 17:00 12/28/24 17:00
Physical Exam
General: Well Developed, Well Nourished, No Apparent Distress and Comfortable
HEENT: NormoCephalic and Moist mucous membranes
Respiratory: Clear
Cardiac: S1/S2 and Regular Rhythm
GI: Soft, Non Tender and Non Distended
Musculoskeletal: No Clubbing, No Cyanosis and No Edema
Skin: Warm and Dry
Neuro: AO x 3
Hematologic/Lymphatic: No Lymphadenopathy
Psych: Calm
Laboratory Results
-
12/28/24 14:44
12/28/24 14:44
Laboratory Results
Total Bilirubin 0.9 mg/dl (0.2-1.3) 12/28/24 14:44
AST 25 U/L (17-59) 12/28/24 14:44
ALT 23 U/L (0-50) 12/28/24 14:44
Alkaline Phosphatase 77 U/L (38-126) 12/28/24 14:44
Troponin I < 0.012 ng/ml 12/28/24 14:44
Impression/Plan
-
Transient left-sided weakness -admit to telemetry. Rule out stroke versus TIA versus other etiology. was concerned over facial droop but on my exam I do not see a droop. He has a nonfocal neurologic exam for me.
Neurology consulted.
Brain MRI pending.
PT consult.
I spoke with neurologist Dr. Springer, recommendation to continue aspirin and hold off on Plavix.
Essential hypertension -stable. Continue home meds.
Hyperlipidemia -pravastatin.
History of prostate cancer
Full code
[2024-12-28] MEDS: VITAMIN E 400 UNITS PO (20:19)
[2024-12-28] MEDS: THERAGRAN 1 TABLET PO (20:19)
[2024-12-28] MEDS: ASPIR LOW (ENTERIC COATED) 81 MG PO (21:31)
[2024-12-28] MEDS: ZESTRIL 40 MG PO (21:31)
[2024-12-28] MEDS: ELAVIL 30 MG PO (21:34)
[2024-12-28] MEDS: XALATAN OPHTHALMIC SOLUTION 1 DROP BOTH EYES (22:13)
[2024-12-29 03:23] VITALS: BP 94/54
[2024-12-29 07:28] VITALS: BP 112/73
[2024-12-29] MEDS: FARXIGA 10 MG PO (08:30)
[2024-12-29] MEDS: VITAMIN C 500 MG PO (08:30)
[2024-12-29] MEDS: MAGNESIUM OXIDE 500 MG PO (08:30)
[2024-12-29] MEDS: PRAVACHOL 80 MG PO (08:30)
[2024-12-29] MEDS: VITAMIN E 400 UNITS PO (08:30)
[2024-12-29] MEDS: THERAGRAN 1 TABLET PO (08:30)
[2024-12-29] MEDS: LEXAPRO 5 MG PO (08:30)
[2024-12-29] MEDS: VITAMIN B-12 1000 MCG PO (08:30)
[2024-12-29] MEDS: VISBIOME 1 CAP PO (08:30)
[2024-12-29] MEDS: TENORMIN 50 MG PO (08:31)
--- NOTE | 2024-12-29 09:16 | W.PN.HOSP.TC ---
Addendum entered and electronically signed by Juan Daniel Lee DO 12/29/24 13:25:
Brain MRI negative
Echocardiogram unremarkable
Carotid ultrasound without significant stenosis
Cleared by PT
Neurology feels diagnosis is TIA. Dual antiplatelet therapy for 21 days then aspirin alone.
Stable for discharge home today.
Follow-up with PCP and neurology.
Updated patient on the phone. All questions answered.
Original Note:
Today's Communication/Plan
-
Brain MRI
PT
Assessment / Plan
Assessment / Plan
Gen-AAOx3, NAD
HEENT-NC, AT, anicteric, clear oral mm
Neck-supple
CV-reg, no M, +S1/S2
Lungs-clear B/L
Abd-soft, NT, ND
Ext-no edema
Musculoskeletal-no cyanosis, clubbing
Skin-warm and dry
Neuro-grossly non-focal
Psych-calm, cooperative
Transient left-sided weakness -no further complaints or deficits on exam. Awaiting brain MRI. PT consult.
Essential hypertension -stable. Continue home meds.
DM2 without hyperglycemia -on Jardiance at home. Last hemoglobin A1c 6.1% in September as per patient.
Hyperlipidemia -pravastatin.
History of prostate cancer
Full code
Dispo -anticipate discharge home today if brain MRI negative.
Anticipated Discharge: Today
Subjective/Interval History
-
Date of Service: December 29, 2024
Patient seen and examined. No complaints.
Objective Data
-
Vital Signs:
Vital Signs
Temp Pulse Resp BP Pulse Ox
98.0 F 71 18 122/73 99
12/29/24 07:28 12/29/24 07:28 12/29/24 07:28 12/29/24 08:31 12/29/24 07:28
I&O
12/28/24 12/29/24 12/30/24
06:59 06:59 06:59
Intake Total 960 / 960
Balance 960 / 960
Review of Systems
-
History Source: Patient
All other systems: Reviewed and negative
--- NOTE | 2024-12-29 10:24 | W.PN.NEURO.1 ---
Today's Communication / Plan
-
.
Subjective/Objective
Subjective Data
Date of Service: December 29, 2024
Neurology Consultation Note.
Mr. Ricci reports no recurrent motor deficits since admission. No reports of headaches or abnormal movements. Reviewed of vital signs was notable for transient hypotension down to 94/54 on 12/29/2024 at 03:23 am.
Brain MRI is pending.
PMH: Prostate cancer, Rathke cyst, HTN, DLP, ANTOINE, MDD, BPPV, ABELARDO
PSH: tonsillectomy, prostatectomy, right inguinal hernia repair, ENV[employer]
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
FH: Mother�hearing impairment
All:NKDA
ROS: Constitutional: Negative. Negative for chills, fever and unexpected weight change.
HENT: Positive for chronic hearing impairment
Eyes: Negative. Negative for photophobia, pain and visual disturbance.
Respiratory: Negative for cough, choking and shortness of breath.
Cardiovascular: Negative for chest pain, palpitations and leg swelling.
Gastrointestinal: Negative for abdominal pain and vomiting.
Endocrine: Negative. Negative for cold intolerance.
Musculoskeletal: Positive for neck pain and stiffness, chronic back pain
Skin: Negative for rash.
Allergic/Immunologic: Negative. Negative for immunocompromised state.
Neurological: Positive for transient left leg weakness, chronic left hemiparesis
Psychiatric/Behavioral: Positive for anxiety
General: Well developed. In no acute distress.
Cardio: Regular rate and rhythm without murmur. Extremities are without cyanosis or edema.
Neuro:
Mental Status: Alert, oriented to person, place, and date. Normal attention and recall. Good fund of knowledge. Follows complex requests across the midline. Comprehension, naming, and repetition intact. Anxious mood
Cranial Nerves: Pupils are equally round and reactive to light. EOMs full. Visual shetty full to confrontation. No ptosis. No nystagmus. V1-V3 intact to light touch and pinprick bilaterally, symmetric. No facial weakness. The palate elevated
well. SCMs and traps 5/5. Tongue midline. No dysarthria.
Motor: Normal bulk and tone. No pronator or arm drift. Strength 5/5 throughout except for a minimal left arm and leg weakness. No clonus.
Reflexes: 2+ throughout the upper extremities and 1+knees. Plantar responses flexor bilaterally.
Sensory: Absent vibration at the toes and reduced at the ankles
Coordination: No dysmetria or tremor.
Gait: Normal stance, base, stride, able to tandem and jump on each foot.
Assessment and Plan:
I. Probable Right LUAN TIA
II. History of prostate cancer
II. Distal symmetric polyneuropathy.
-Continue Telemetry monitoring
-Please obtain orthostatic vital sign
-Follow-up brain MRI result
-Continue DAPT
-Lipitor 40 mg QHS.
-Please check HbA1C, LDL.
-TTE, carotid Doppler ultrasound.
-Polyneuropathy blood work
-PT.
-DVT prophylaxis.
Outpatient neurology follow-up
I personally reviewed all radiology and labs along with past medical records pertinent to current medical problems. Total time spent in patient care is 60 minutes.
Thank you for allowing us to participate in the care of this patient. We will continue to follow. Please do not hesitate to contact us with any questions or concerns.
Objective Data
Vital Signs
Temp Pulse Resp BP Pulse Ox
36.7 C 71 18 122/73 99
12/29/24 07:28 12/29/24 07:28 12/29/24 07:28 12/29/24 08:31 12/29/24 07:28
Lab Results
12/28/24 14:44
12/28/24 14:44
Sodium 140 mmol/L (135-145) 12/28/24 14:44
Potassium 4.4 mmol/L (3.5-5.1) 12/28/24 14:44
BUN 25 mg/dl (9-20) H 12/28/24 14:44
Glucose 101 mg/dl (70-99) H 12/28/24 14:44
Calcium 9.8 mg/dl (8.4-10.2) 12/28/24 14:44
Patient Allergies
environmental Allergy (Uncoded 12/28/24 11:37)
itchy eyes, sneezing
Vital Signs and Labs
-
Vital Signs and Labs:
Vital Signs
Temp Pulse Resp BP Pulse Ox
36.7 C 71 18 122/73 99
12/29/24 07:28 12/29/24 07:28 12/29/24 07:28 12/29/24 08:31 12/29/24 07:28
Lab Results
12/28/24 14:44
12/28/24 14:44
Sodium 140 mmol/L (135-145) 12/28/24 14:44
Potassium 4.4 mmol/L (3.5-5.1) 12/28/24 14:44
BUN 25 mg/dl (9-20) H 12/28/24 14:44
Glucose 101 mg/dl (70-99) H 12/28/24 14:44
Calcium 9.8 mg/dl (8.4-10.2) 12/28/24 14:44
Medications
-
Medications:
Generic Name Dose Route Start Last Admin
Trade Name Freq PRN Reason Stop Dose Admin
Acetaminophen 650 mg 12/28/24 18:56
Acetaminophen 325 Mg Tablet PO 01/25/25 18:55
Q6HPRN PRN
mild pain/ fever>100.5F
Amitriptyline HCl 30 mg 12/28/24 22:00 12/28/24 21:34
Amitriptyline 10 Mg Tablet PO 01/25/25 21:59 30 mg
HS DEDE Administration
Ascorbic Acid 500 mg 12/29/24 08:00 12/29/24 08:30
Ascorbic Acid 500 Mg Tablet PO 01/26/25 07:59 500 mg
DAILY DEDE Administration
Aspirin 81 mg 12/28/24 22:00 12/28/24 21:31
Aspirin 81 Mg (Enteric Coated) Tablet PO 01/25/25 21:59 81 mg
HS DEDE Administration
Atenolol 50 mg 12/29/24 08:00 12/29/24 08:31
Atenolol 50 Mg Tablet PO 01/26/25 07:59 50 mg
DAILY DEDE Administration
Cyanocobalamin 1,000 mcg 12/29/24 08:00 12/29/24 08:30
Cyanocobalamin 1,000 Mcg Tablet PO 01/26/25 07:59 1,000 mcg
DAILY DEDE Administration
Dapagliflozin 10 mg 12/29/24 08:00 12/29/24 08:30
Dapagliflozin (Farxiga) 10 Mg Tablet PO 01/26/25 07:59 10 mg
DAILY DEDE Administration
Enoxaparin Sodium 40 mg 12/29/24 18:00
Enoxaparin Sodium 40 Mg/0.4 Ml Syringe SC 01/26/25 17:59
QPM DEDE
Escitalopram Oxalate 5 mg 12/29/24 08:00 12/29/24 08:30
Escitalopram 5 Mg Tablet PO 01/26/25 07:59 5 mg
DAILY DEDE Administration
Lactobacillus/Bifidobacterium 1 cap 12/29/24 08:00 12/29/24 08:30
Lactobac/Bifidobac (Visbiome) PO 01/26/25 07:59 1 cap
DAILY DEDE Administration
Latanoprost 1 drop 12/28/24 22:00 12/28/24 22:13
Latanoprost 0.005% (Ophthalmic Solution) 2.5 Ml Bottle BOTH EYES 01/25/25 21:59 1 drop
HS DEDE Administration
Lisinopril 40 mg 12/28/24 22:00 12/28/24 21:31
Lisinopril 20 Mg Tablet PO 01/25/25 21:59 40 mg
HS DEDE Administration
Magnesium Oxide 500 mg 12/29/24 08:00 12/29/24 08:30
Magnesium Oxide 500 Mg Tablet PO 01/26/25 07:59 500 mg
DAILY DEDE Administration
Multivitamins Therapeutic 1 tablet 12/28/24 20:00 12/29/24 08:30
Multivitamin Tablet PO 01/25/25 19:59 1 tablet
BID DEDE Administration
Pravastatin Sodium 80 mg 12/29/24 08:00 12/29/24 08:30
Pravastatin 40 Mg Tablet PO 01/26/25 07:59 80 mg
DAILY DEDE Administration
Vitamin E 400 units 12/28/24 20:00 12/29/24 08:30
Vitamin E 400 International Units Capsule (180 Mg) PO 01/25/25 19:59 400 units
BID DEDE Administration
Home Medications
-
Home Medications
aspirin 81 mg tablet,delayed release 81 mg PO HS 02/27/10
atenolol 50 mg tablet 50 mg PO DAILY 10/22/15
escitalopram oxalate 5 mg tablet 5 mg PO DAILY 04/24/24
lisinopril 40 mg tablet 40 mg PO HS 04/24/24
Lactobac no.2-Bifidobac no.1-S. thermo 112.5 billion cell capsule (Visbiome) 1 cap PO DAILY 12/28/24
amitriptyline 10 mg tablet 30 mg PO HS 12/28/24
ascorbate calcium (vitamin C) 500 mg tablet 500 mg PO DAILY 12/28/24
cyanocobalamin (vitamin B-12) 1,000 mcg tablet 1,000 mcg PO DAILY 12/28/24
empagliflozin 25 mg tablet (Jardiance) 25 mg PO DAILY 12/28/24
guar gum 2 tbsp PO DAILY 12/28/24
magnesium oxide 500 mg PO DAILY 12/28/24
pravastatin 80 mg tablet 80 mg PO DAILY 12/28/24
therapeutic multivitamin 1 tab PO BID 12/28/24
travoprost 0.004 % eye drops 1 drp BOTH EYES HS 12/28/24
vitamin E 268 mg (400 unit) capsule 268 mg PO BID 12/28/24
[2024-12-29 11:05] LABS: HDL Cholesterol 55 mg/dl; LDL Cholesterol, Calculated 85 mg/dl; Total Cholesterol 163 mg/dl (50-199); Triglyceride 115 mg/dl (10-149); Very Low Density Lipoprotein 23 mg/dl (0-30)
[2024-12-29] MEDS: PLAVIX 75 MG PO (11:12)
[2024-12-29 11:34] VITALS: BP 129/74
--- NOTE | 2024-12-29 13:24 | W.DS.TRANS ---
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
-
Discharge Instructions:
Discharge Diagnosis/Procedures Transient ischemic attack
Diet Low Cholesterol,Low Fat,Diabetic, Carb
Controlled
Activity As tolerated
Driving Restrictions As prior to admission
Bathing Restrictions None
Instructions:
Stand-Alone Forms:
Changes to Home Medications: Yes
Discharge Medications:
DC Medications w/original date entered in [employer]
aspirin 81 mg tablet,delayed release 81 mg PO HS 02/27/10
atenolol 50 mg tablet 50 mg PO DAILY 10/22/15
escitalopram oxalate 5 mg tablet 5 mg PO DAILY 04/24/24
lisinopril 40 mg tablet 40 mg PO HS 04/24/24
Lactobac no.2-Bifidobac no.1-S. thermo 112.5 billion cell capsule (Visbiome) 1 cap PO DAILY 12/28/24
amitriptyline 10 mg tablet 30 mg PO HS 12/28/24
ascorbate calcium (vitamin C) 500 mg tablet 500 mg PO DAILY 12/28/24
cyanocobalamin (vitamin B-12) 1,000 mcg tablet 1,000 mcg PO DAILY 12/28/24
empagliflozin 25 mg tablet (Jardiance) 25 mg PO DAILY 12/28/24
guar gum 2 tbsp PO DAILY 12/28/24
magnesium oxide 500 mg PO DAILY 12/28/24
therapeutic multivitamin 1 tab PO BID 12/28/24
travoprost 0.004 % eye drops 1 drp BOTH EYES HS 12/28/24
vitamin E 268 mg (400 unit) capsule 268 mg PO BID 12/28/24
atorvastatin 40 mg tablet 40 mg PO QPM #30 tabs 12/29/24
clopidogrel 75 mg tablet 75 mg PO DAILY #20 tabs 12/29/24
Home Medication Changes
Stop pravastatin
Pending Results: No
--- NOTE | 2024-12-29 14:41 | CM ---
Patient stable for d/c today, d/c order placed. Patient seen bedside w/ spouse and friends. Initial assessment completed.
Patient is a 74-year-old male was stepping off a train this morning and his left leg gave out. He fell onto his hands and knees. No loss of consciousness. He subsequently got up and was able to walk 3 blocks back to his home but felt that he was
not steady with walking. CC left-sided weakness.
Patient reports he resides w/ spouse in [facility]- 2 steps to enter from the front, 4 steps to enter from the back. Patient is independent w/ ambulating and ADLs, no DME identified. No SNF hx reported, patient just recently this week finished OP therapy
from a torn hamstring. Patient shared he had HC services 8 years ago, doesn't recall provider.
Address, point of contact and insurance verified
PCP: Shannon Mendoza
Pharmacy: [facility]
Patient admitted as OBS. OOBS form verbally reviewed, patient given copy, copy placed on chart
Therapy assessed patient- no skilled needs identified
Plan: Home; no needs
[2024-12-29 15:08] VITALS: BP 120/68
== END 2024-12-29 15:50 | disposition home or self-care (01) ==
LOC: 4 WEST ACU 18:35
PROVIDERS: Nurse Practitioner; ADMITTING PHYSICIAN Hospitalist; CONSULT PHYSICIAN Psychiatry & Neurology Neurology; EMERGENCY PHYSICIAN Emergency Medicine; FAMILY PHYSICIAN Physician Assistant
DX: G45.9 Transient cerebral ischemic attack, unspecified (principal); R53.1 Weakness; R29.810 Facial weakness; I95.89 Other hypotension; H53.8 Other visual disturbances; G89.29 Other chronic pain; M54.2 Cervicalgia; M54.9 Dorsalgia, unspecified; I69.354 Hemiplegia and hemiparesis following cerebral infarction affecting left non-dominant side; R51.9 Headache, unspecified; E23.6 Other disorders of pituitary gland; G31.9 Degenerative disease of nervous system, unspecified; E11.9 Type 2 diabetes mellitus without complications; I10 Essential (primary) hypertension; E78.00 Pure hypercholesterolemia, unspecified; F32.A Depression, unspecified; V68.4XXA Person boarding or alighting a heavy transport vehicle injured in noncollision transport accident, initial encounter; Y93.01 Activity, walking, marching and hiking; Y92.522 Railway station as the place of occurrence of the external cause; F41.1 Generalized anxiety disorder; G47.33 Obstructive sleep apnea (adult) (pediatric); G62.9 Polyneuropathy, unspecified; Z85.46 Personal history of malignant neoplasm of prostate; Z90.79 Acquired absence of other genital organ(s); Z79.82 Long term (current) use of aspirin; Z92.3 Personal history of irradiation
CPT/HCPCS: 70450; 70551; 80053; 80061; 84484; 85025; 93005; 93306; 93880; 97161; 99285; G0378

== ENCOUNTER 2025-06-17 20:14 | Inpatient (IN) | payer BC, SELFPAY ==
[2025-06-17 16:48] VITALS: BP 122/74
[2025-06-17 17:31] LABS: Urine Character Cloudy (Clear)
[2025-06-17 17:41] VITALS: BP 127/74
[2025-06-17 17:41] LABS: Urine Red Blood Cell >100 /HPF (0-2); Urine Squamous Cell 0-2 /LPF (Few)
[2025-06-17 17:42] LABS: Urine White Cell 0-2 /HPF (0-5)
--- NOTE | 2025-06-17 17:50 | ED.GENMED ---
History of Present Illness
<Jeremy Madsen PA-C - Last Filed: 06/17/25 20:35>
General
Chief Complaint: Urinary Symptoms
Time Seen by Provider: 06/17/25 17:34
History of Present Illness
History of Present Illness:
75-year-old male presents the emergency department for evaluation of urinary retention that began this morning, last able to urinate at approximately 7 AM. Has a past history of prostate cancer status post radical prostatectomy with local radiation
treatment. Has never had similar issues like this before. Due to prior stroke he is on Plavix and aspirin at this time. Catheter was placed by nursing staff prior to my evaluation with immediate return of grossly bloody urine. He denies any
abdominal pain
Past History
<Jeremy Madsen PA-C - Last Filed: 06/17/25 20:35>
Past History
ED Past Medical History: HTN, Hypercholesterolemia, Psychiatric (Depression), Other (prostate ca) and Other (Pituitary disorder)
ED Past Surgical History: Tonsilectomy, Urological (Prostatectomy) and Other (Right inguinal hernia repair)
Social History
Tobacco: Non-smoker
Alcohol: Occasional
Drug: None
Personal:
Living: with family
Employment: Employed
Family History
Family History: Early CAD
Review of Systems
<Jeremy Madsen PA-C - Last Filed: 06/17/25 20:35>
Review of Systems
Allergies reviewed?: Yes
All Other Systems: ROS reviewed and negative except as documented in HPI and ROS
Phy Exam
<Jeremy Madsen PA-C - Last Filed: 06/17/25 20:35>
Physical Exam
Physical Exam:
GEN: Well appearing, NAD, WDWN
HEENT: Oral mucosa moist, no scleral icterus
Cardiac: Regular rate
Lung: No respiratory distress, no tachypnea
: Davila catheter in place with newton red urine in bag, no clots noted
MSK: No gross deformity or injuries
Skin: Good color, no pallor or jaundice, no rashes
Neuro: AO x3, moves all extremities freely
Psych: Calm, cooperative
Course
<Jeremy Madsen PA-C - Last Filed: 06/17/25 20:35>
Orders/Labs/Results
Orders:
Orders
06/17/25 17:07
Urinalysis Reflex To Culture Urgent
Date Specimen was Collected: 06/17/25
Time Specimen was Collected: 17:06
Urine Microscopic Reflex Cult Urgent
Urine Culture Urgent
GLADIS Source: U
Specimen Description:
Date Specimen was Collected: 06/17/25
Time Specimen was Collected: 17:06
06/17/25 18:17
Complete Blood Count/With Diff Urgent
Comprehensive Metabolic Panel Urgent
Prothrombin Time Urgent
06/17/25 19:22
HYDROmorphone [Dilaudid] 0.5 mg IV NOW STA
Lidocaine 2% [Lidocaine Uro-Jet 2%] 1 syringe TOPICAL NOW STA
06/17/25 19:23
CBI- Treatment PRN
Solution: NSS
Irrigate to Clear?: Yes
06/17/25 19:47
Admit/Transfer Patient As Directed
Co-Sign Provider:
Level of Care: Inpatient admission
Assign to:: Medical/Surgical
Physician / Group: nikki
Diagnosis: hematuria
Reason for Hospitalization: hematuria
Expected length of stay greater than two midnights?: Yes
ELOS- Estimated Length of Stay in days: 2
I certify the patient meets the requirements for IP care: Yes
06/17/25 19:48
Code Status As Directed
Resuscitation Status: Full Code
PRN Pain Medication Management As Directed
May give lesser potent ordered pain med per pt: Yes
preference::
Protocol:: Medication orders for pain may be administered in a
manner that supports deferring to patient preference
when the pt is:
- Requesting an ordered lesser potent pain medication.
Least to most potent pain medications are defined
as: acetaminophen < NSAID < tramadol < opioids
(morphine, oxycodone, hydromorphone).
- Requesting a lesser dose of the same medication IF
ORDERED.
- Requesting a less intrusive route of administration
if both routes are prescribed by the provider (PO <
IV).
Abnormal Lab Results
06/17/25 06/17/25
17:07 18:17
MCH 26.8 L pg
(27.0-31.0)
BUN 23 H mg/dl
(9-20)
Glucose 121 H mg/dl
(70-99)
Urine Ketones 1+ A
(Negative)
Ur Occult Blood Reflex 4+ A
(Negative)
Leukocyte Esterase Rfl 1+ A
(Negative)
Urine RBC >100 A /HPF
(0-2)
Urine Bacteria (Reflex) Few A
(Negative)
Urine Glucose 4+ A
(Negative)
Urine Albumin (Reflex) 4+ A
(Neg - Trace)
06/17/25 18:17
06/17/25 18:17
Vital Signs
Initial and Last Documented VS:
Initial Vital Signs
Temp Pulse Resp BP Pulse Ox
98.5 F 79 16 122/74 95
06/17/25 16:48 06/17/25 16:48 06/17/25 16:48 06/17/25 16:48 06/17/25 16:48
Last Documented Vital Signs
Temp Pulse Resp BP Pulse Ox
98.5 F 74 16 127/74 96
06/17/25 16:48 06/17/25 18:21 06/17/25 16:48 06/17/25 17:41 06/17/25 20:15
<Cameron Curry MD - Last Filed: 06/17/25 20:11>
Orders/Labs/Results
Orders:
Orders
06/17/25 17:07
Urinalysis Reflex To Culture Urgent
Date Specimen was Collected: 06/17/25
Time Specimen was Collected: 17:06
Urine Microscopic Reflex Cult Urgent
Urine Culture Urgent
GLADIS Source: U
Specimen Description:
Date Specimen was Collected: 06/17/25
Time Specimen was Collected: 17:06
06/17/25 18:17
Complete Blood Count/With Diff Urgent
Comprehensive Metabolic Panel Urgent
Prothrombin Time Urgent
06/17/25 19:22
HYDROmorphone [Dilaudid] 0.5 mg IV NOW STA
Lidocaine 2% [Lidocaine Uro-Jet 2%] 1 syringe TOPICAL NOW STA
06/17/25 19:23
CBI- Treatment PRN
Solution: NSS
Irrigate to Clear?: Yes
06/17/25 19:47
Admit/Transfer Patient As Directed
Co-Sign Provider:
Level of Care: Inpatient admission
Assign to:: Medical/Surgical
Physician / Group: nikik
Diagnosis: hematuria
Reason for Hospitalization: hematuria
Expected length of stay greater than two midnights?: Yes
ELOS- Estimated Length of Stay in days: 2
I certify the patient meets the requirements for IP care: Yes
06/17/25 19:48
Code Status As Directed
Resuscitation Status: Full Code
PRN Pain Medication Management As Directed
May give lesser potent ordered pain med per pt: Yes
preference::
Protocol:: Medication orders for pain may be administered in a
manner that supports deferring to patient preference
when the pt is:
- Requesting an ordered lesser potent pain medication.
Least to most potent pain medications are defined
as: acetaminophen < NSAID < tramadol < opioids
(morphine, oxycodone, hydromorphone).
- Requesting a lesser dose of the same medication IF
ORDERED.
- Requesting a less intrusive route of administration
if both routes are prescribed by the provider (PO <
IV).
Abnormal Lab Results
06/17/25 06/17/25
17:07 18:17
MCH 26.8 L pg
(27.0-31.0)
BUN 23 H mg/dl
(9-20)
Glucose 121 H mg/dl
(70-99)
Urine Ketones 1+ A
(Negative)
Ur Occult Blood Reflex 4+ A
(Negative)
Leukocyte Esterase Rfl 1+ A
(Negative)
Urine RBC >100 A /HPF
(0-2)
Urine Bacteria (Reflex) Few A
(Negative)
Urine Glucose 4+ A
(Negative)
Urine Albumin (Reflex) 4+ A
(Neg - Trace)
06/17/25 18:17
06/17/25 18:17
Vital Signs
Initial and Last Documented VS:
Initial Vital Signs
Temp Pulse Resp BP Pulse Ox
98.5 F 79 16 122/74 95
06/17/25 16:48 06/17/25 16:48 06/17/25 16:48 06/17/25 16:48 06/17/25 16:48
Last Documented Vital Signs
Temp Pulse Resp BP Pulse Ox
98.5 F 74 16 127/74 96
06/17/25 16:48 06/17/25 18:21 06/17/25 16:48 06/17/25 17:41 06/17/25 20:15
<Jeremy Madsen PA-C - Last Filed: 06/17/25 20:35>
MDM/Problems Addressed
MDM/Problems Addressed:
Catheter was hand irrigated by nursing staff with mild improvement however during further observation urine return to profusely bloody. Case was discussed with urology who agrees with plan to start CBI and admit for further evaluation and
management, antiplatelets to be held
<Jeremy Madsen PA-C - Last Filed: 06/17/25 20:35>
*Pulse Oximetry
SaO2: 95
Oxygen Mode of Delivery: Room air
Patient hypoxic: no
*Critical Care Note
Total Time (30-74mins, 75-104mins- exclusive of procedures): Not Applicable
ED Attending Note
<Jeremy Madsen PA-C - Last Filed: 06/17/25 20:35>
-
Portions of this chart may have been created with voice recognition software.� Occasional wrong word or��sound alike� substitutions may have occurred due to the inherent limitations of voice recognition software.
<Cameron Curry MD - Last Filed: 06/17/25 20:11>
ED Attending Note
Patient seen and examined by attending physician: Yes
ED Attending Note:
Patient presents to ED for an evaluation secondary to inability to urinate since this morning. Denies nausea or vomiting. Denies abdominal pain. Denies fever or chills. Denies recent change in medications or diet. Denies previous history of
similar symptoms. Patient's medical history is significant for prostate cancer, status post radiation treatment. Patient is in remission.
Physical Exam
General: no apparent distress, not acutely ill. afebrile
Head: nc/at. eomi
Neck: supple. normal range of motion
Abdomen: normal bowel sounds. not tender.
Neuro: alert and oriented x 3. no focal neurological deficits
Skin: no rash
Psychiatric: well kept. interactive and cooperative
Extremities: no edema.
Upon arrival in ED, patient found to be in acute urinary retention. CBI started in ED. Discussed with on-call urology, , who recommends patient to be admitted for further evaluation and treatment.
Discharge Plan
Departure
Patient Disposition: Admit
Date of Disposition: 06/17/25
Time of Disposition: 19:24
Admit to: Med/Surg
Presentation/result/management discussed w/ accepting MD/DO: Hospitalist
Discharge Problem:
Hematuria, Acute urinary retention
Interventions
Interventions:
*Risk Screen - Suicide Last Done: 06/17/25 16:48
*General Assessment Last Done: 06/17/25 16:48
*Neglect/Abuse Screening Last Done: 06/17/25 16:48
*ED- Fall Risk Assessment Last Done: 06/17/25 16:48
*ED COVID-19 Vaccine History Last Done: 06/17/25 16:48
ED-Male Genitourinary Assessment Last Done: 06/17/25 18:19
[2025-06-17 18:20] VITALS: BMI 30.2
[2025-06-17 18:25] LABS: Hematocrit 43.0 % (39.0-52.0); Hemoglobin 14.3 g/dL (13.0-18.0); Mean Corp Hgb Conc. 33.3 g/dL (33.0-37.0); Mean Corpuscular Volume 80.7 fL (80.0-94.0); Nucleated Red Blood Cells % 0 % (-); Platelet Count 160 10^3/uL (130-400); Red Cell Dist. Width 13.3 % (11.5-14.5)
[2025-06-17 18:35] LABS: INR 1.07; PT 14.2 Sec (11.4-14.6)
[2025-06-17 18:47] LABS: ALT (SGPT) 23 U/L (0-50); AST (SGOT) 24 U/L (17-59); Albumin 4.5 g/dl (3.5-5.0); Alkaline Phosphatase 89 U/L (38-126); Blood Urea Nitrogen 23 mg/dl (9-20); Calcium 9.1 mg/dl (8.4-10.2); Carbon Dioxide 24 mmol/L (22-30); Chloride 107 mmol/L (98-107); Estimated Creatinine Clearance 79 ml/min; Glucose 121 mg/dl (70-99); Potassium 4.6 mmol/L (3.5-5.1); Sodium 139 mmol/L (135-145); Total Protein 7.0 g/dl (6.3-8.2); eGFR > 60.00
[2025-06-17] MEDS: DILAUDID 0.5 MG IV (19:28)
[2025-06-17] MEDS: LIDOCAINE URO-JET 2% 1 SYRINGE TOPICAL (19:31)
--- NOTE | 2025-06-17 19:52 | HPS.HSE ---
Family Physician
-
Family Physician: Shannon Mendoza
Chief Complaint
-
urinary retention
History of Present Illness
75-year-old male past medical history of hypertension, diabetes, hyperlipidemia, prior CVA, prostate cancer status post radical prostatectomy 2017 with local radiation in 2018, anxiety/depression, presenting for blood in the urine and urinary
retention that started this morning. Was last able to urinate at 7 AM. He did not notice any clots. He denies any burning with urination or abdominal pain. No fevers or chills or flank pain.
He states that since he had radical prostatectomy in 2017 local radiation 2018 he had a few episodes of blood in the urine which resolved spontaneously for which he saw Dr. Ibarra who thought was secondary to radiation.
In the emergency room Davila catheter was placed with return of grossly bloody urine. He denies any abdominal pain.
He denies smoking or alcohol use.
Medical History
Past Medical History
Past Medical History: Reports Other (hypertension, diabetes, hyperlipidemia, prior CVA, prostate cancer status post radical prostatectomy 2017 with local radiation in 2018, anxiety/depression)
Past Surgical History: Reports Other (Tonsilectomy, Urological (Prostatectomy) and Other (Right inguinal hernia repair))
Social History
Tobacco: Non-smoker
Alcohol: None
Drug: None
Family History
Family History: Not pertinent
Allergies / Home Medications
Allergies reflects when Allergies were last updated in [employer].
Home Medications with original date entered in [employer]
Allergy/Medication List:
Allergies
Allergy/AdvReac Type Severity Reaction Status Date / Time
environmental Allergy itchy Uncoded 06/17/25 16:51
eyes,
sneezing
Home Medications
aspirin 81 mg tablet,delayed release 81 mg PO HS 02/27/10
atenolol 50 mg tablet 50 mg PO DAILY 10/22/15
escitalopram oxalate 5 mg tablet 5 mg PO DAILY 04/24/24
lisinopril 40 mg tablet 40 mg PO HS 04/24/24
Lactobac no.2-Bifidobac no.1-S. thermo 112.5 billion cell capsule (Visbiome) 1 cap PO DAILY 12/28/24
amitriptyline 10 mg tablet 30 mg PO HS 12/28/24
ascorbate calcium (vitamin C) 500 mg tablet 500 mg PO DAILY 12/28/24
cyanocobalamin (vitamin B-12) 1,000 mcg tablet 1,000 mcg PO DAILY 12/28/24
empagliflozin 25 mg tablet (Jardiance) 25 mg PO DAILY 12/28/24
guar gum 2 tbsp PO DAILY 12/28/24
magnesium oxide 500 mg PO DAILY 12/28/24
therapeutic multivitamin 1 tab PO BID 12/28/24
travoprost 0.004 % eye drops 1 drp BOTH EYES HS 12/28/24
vitamin E 268 mg (400 unit) capsule 268 mg PO BID 12/28/24
atorvastatin 40 mg tablet 40 mg PO QPM #30 tabs 12/29/24
clopidogrel 75 mg tablet 75 mg PO DAILY #20 tabs 12/29/24
Review of Systems
-
History Source: Patient
A 12 point ROS was completed and negative except as noted: Yes
Constitutional: Reports No Symptoms
EENT: Reports No Symptoms
Respiratory: Reports No Symptoms
Cardiac: Reports No Symptoms
Abdomen/GI: Reports No Symptoms
: Reports See HPI
Musculoskeletal: Reports No Symptoms
Skin: Reports No Symptoms
Neurological: Reports No Symptoms
Endocrine: Reports No Symptoms
Hematologic/Lymphatic: Reports No Symptoms
Psych: Reports No Symptoms
Physical Exam
Vital Signs
Vital Signs
Temp Pulse Resp BP Pulse Ox
98.5 F 74 16 127/74 96
06/17/25 16:48 06/17/25 18:21 06/17/25 16:48 06/17/25 17:41 06/17/25 18:17
Physical Exam
General: Well Developed, Well Nourished and No Apparent Distress
HEENT: NormoCephalic, Moist mucous membranes and Atraumatic
Respiratory: Clear
Cardiac: S1/S2 and Regular Rhythm; No Murmur or Rub
GI: Soft, Non Tender, Non Distended and Normal Bowel Sounds; No Organomegaly
Rectal: Deferred by Provider
Musculoskeletal: No Clubbing, No Cyanosis and No Edema
Skin: No Rash
Neuro: Nonfocal/grossly intact
Laboratory Results
-
06/17/25 18:17
06/17/25 18:17
Laboratory Results
PT 14.2 Sec (11.4-14.6) 06/17/25 18:17
INR 1.07 06/17/25 18:17
Total Bilirubin 0.8 mg/dl (0.2-1.3) 06/17/25 18:17
AST 24 U/L (17-59) 06/17/25 18:17
ALT 23 U/L (0-50) 06/17/25 18:17
Alkaline Phosphatase 89 U/L (38-126) 06/17/25 18:17
Data Reviewed
-
Lab Data: Labs Reviewed by me
Old Records: Reviewed
Impression/Plan
-
IMPRESSION:
PLAN:
# Hematuria/urinary retention likely secondary to hemorrhagic cystitis from prior prostate cancer radiation
# History of prostate cancer status post radical prostatectomy with local radiation
-Urinalysis showed greater than 100 RBC,
- CBI to be started, Dilaudid for pain
- Hold aspirin, Plavix
- Urology consulted
Essential hypertension
- Continue atenolol
- Continue lisinopril
Type 2 diabetes
- Continue Jardiance
- Insulin sliding scale
Hyperlipidemia
- Continue statin
History of prior TIA
Anxiety/depression
- Continue amitriptyline
- Continue Lexapro
Full code
DVT prophylaxis�SCDs
Regular diet
--- NOTE | 2025-06-17 21:29 | CONS.URO ---
Consultation
-
Date/Time Consultation Requested: 06/17
Date/Time Consultation Performed: 06/17
Requesting Provider: ED
Performing Provider: Jarad
Reason for Consultation: urinary retention, hemorrhagic cystitis
Medical History
History of Present Illness
75M presents to [facility] ED this evening w/ inability to void since 0700 this AM.
Denies passage of clots.
Davila catheter placed w/ immediate output of dark bloody urine - hand irrigated in ED w/o significant improvement in hematuria.
Notes remote h/o intermittent hematuria in 2018 soon after completing salvage EBRT - resolved spontaneously w/o intervention.
Sees Dr. Ibarra for prostate cancer surveillance.
Prior urologic history:
- s/p RALP/BPLND (11/2016)
- s/p EBRT (2018)
- on Trimix for ED (remote h/o priapism requiring ED visit)
Past Medical History
Past Medical History: Cancer (prostate cancer), CVA, HTN, NIDDM and Other (HLD)
Past Surgical History: Tonsilectomy, Urological (RALP/BPLND (11/2016)) and Other ([facility])
Social History
Tobacco: Non-smoker
Alcohol: None
Drug: None
Personal:
Living: With Family
Employment: Retired
Family History
Family History: Reviewed & Not Pertinent
Allergies/Home Medications
Allergies
Allergy/AdvReac Type Severity Reaction Status Date / Time
environmental Allergy itchy Uncoded 06/17/25 16:51
eyes,
sneezing
Home Medications
�Medication �Instructions �Recorded �Confirmed �Type
aspirin 81 mg tablet,delayed 81 mg PO HS 02/27/10 12/28/24 History
release
atenolol 50 mg tablet 50 mg PO DAILY 10/22/15 12/28/24 History
escitalopram oxalate 5 mg tablet 5 mg PO DAILY 04/24/24 12/28/24 History
lisinopril 40 mg tablet 40 mg PO HS 04/24/24 12/28/24 History
Lactobac no.2-Bifidobac no.1-S. 1 cap PO DAILY 12/28/24 12/28/24 History
thermo 112.5 billion cell capsule
(Visbiome)
amitriptyline 10 mg tablet 30 mg PO HS 12/28/24 12/28/24 History
ascorbate calcium (vitamin C) 500 500 mg PO DAILY 12/28/24 12/28/24 History
mg tablet
cyanocobalamin (vitamin B-12) 1,000 mcg PO DAILY 12/28/24 12/28/24 History
1,000 mcg tablet
empagliflozin 25 mg tablet 25 mg PO DAILY 12/28/24 12/28/24 History
(Jardiance)
guar gum 2 tbsp PO DAILY 12/28/24 12/28/24 History
magnesium oxide 500 mg PO DAILY 12/28/24 12/28/24 History
therapeutic multivitamin 1 tab PO BID 12/28/24 12/28/24 History
travoprost 0.004 % eye drops 1 drp BOTH EYES HS 12/28/24 12/28/24 History
vitamin E 268 mg (400 unit) capsule 268 mg PO BID 12/28/24 12/28/24 History
atorvastatin 40 mg tablet 40 mg PO QPM #30 tabs 12/29/24 Rx
clopidogrel 75 mg tablet 75 mg PO DAILY #20 tabs 12/29/24 Rx
Review of Systems
-
History Source: Patient
A 12 point Review of Systems was completed except as noted: Yes
: Reports Difficulty Voiding
Physical Exam
Vital Signs
Vital Signs
Temp Pulse Resp BP Pulse Ox
98.5 F 74 16 127/74 96
06/17/25 16:48 06/17/25 18:21 06/17/25 16:48 06/17/25 17:41 06/17/25 20:15
Lab / Testing Results
Laboratory Results
06/17/25 18:17
06/17/25 18:17
Physical Exam
General: Well Developed, Well Nourished and No Apparent Distress
HEENT: Normocephalic and Anicteric
Respiratory: Non Labored Respirations
Cardiac: S1/S2
Breast: N/A
GI: Soft, Non Tender and Non Distended
Rectal: Deferred by Provider
Genito-urinary: No Costovertebral Tend, Bloody Urine and Davila Catheter
Skin: Warm and Dry
Neuro: AO x 3, No Motor Deficits and Nonfocal/Grossly Intact
Hematologic/Lymphatic: No Lymphadenopathy
Psych: Calm and Intact Judgement
Assessment / Plan
-
Acute urinary retention
Hemorrhagic cystitis - likely secondary to decompression hematuria + radiation cystitis
H/o prostate cancer s/p RALP/BPLND + salvage EBRT
PSA <0.02 in 2024.
3-way catheter exchanged at request of Urology due to significant hematuria => CBI initiated.
Plan:
- HOLD ASA/Plavix
- Continue CBI o/n to wean urine to light/clear - expect urine to clear w/ expectant management, DAPT hold, and CBI
- Hand irrigate 3-way catheter prn clots/obstruction
D/w ED.
D/w Hospitalist.
Data Reviewed
-
Total Time Spent with Patient (in minutes): 45
Lab Data: Labs Reviewed and Discussed with Physician
Old Records: Reviewed
[2025-06-17 21:49] VITALS: BP 109/63; BMI 30.3
[2025-06-17 21:56] LABS: Glucose - Point of Care 191 mg/dl (70-99)
[2025-06-17] MEDS: LIPITOR 40 MG PO (22:44)
[2025-06-17] MEDS: ZESTRIL 40 MG PO (22:45)
[2025-06-17] MEDS: ELAVIL 30 MG PO (22:47)
[2025-06-17 23:15] VITALS: BP 119/60
[2025-06-18] MEDS: DILAUDID 0.5 MG IV (01:01)
[2025-06-18 07:25] VITALS: BP 98/66
[2025-06-18 07:30] LABS: Glucose - Point of Care 213 mg/dl (70-99)
[2025-06-18] MEDS: LEXAPRO 5 MG PO (07:39)
[2025-06-18] MEDS: FARXIGA 10 MG PO (07:39)
[2025-06-18] MEDS: TENORMIN 50 MG PO (07:39)
[2025-06-18] MEDS: NOVOLOG FLEXPEN-LOW RESISTANCE 2 UNITS SC (07:56)
--- NOTE | 2025-06-18 08:12 | W.PN.HOSP.TC ---
Today's Communication/Plan
-
CBI to stop midday
Void trial tomorrow, possible DC tomorrow
h/h monitoring, discontinue Plavix
Assessment / Plan
Assessment / Plan
75M w/HTN, DM, HLD, prior CVA, prostate CA s/p radical prostatectomy 2017 w/ local radiation in 2018, anxiety/depression, presenting for hematuria and urinary retention.
Gross hematuria
Urinary retention 2/2 above
ddx includes hemorrhagic cystitis from prior prostate cancer radiation
pt has history of prostate cancer status post radical prostatectomy with local radiation
- monitor h/h, transfuse if hgb<7. Monitor Cr.
- cont read, CBI until runs clear
- prn IV dilaudid for pain
- Hold aspirin, Plavix. At this time would not attempt to restart Plavix.
- Urology consulted Dr. Abraham appreciate recs, plan stop CBI midday, discontinue Read tomorrow with voiding trial and if can void will go home.
Essential hypertension
BP on low side
- hold atenolol, lisinopril while actively bleeding
Type 2 diabetes
- Continue Jardiance (therapeutic interchange for farxiga on formulary)
- Insulin sliding scale
Hyperlipidemia
- Continue statin
History of prior TIA over a year ago
hold asa/cont statin
Follows with Dr. Melchor, would reach out to him Thursday for recs on aspirin. Can likely hold off restarting Plavix
Anxiety/depression
- Continue amitriptyline
- Continue Lexapro
Full code
DVT prophylaxis�SCDs, encourage ambulation
Anticipated Discharge: Within 24 hours
Subjective/Interval History
-
Date of Service: June 18, 2025
Feeling well, denies acute issues overnight. Daughter at bedside. Patient is updated on plan of care
Objective Data
-
Labs:
Laboratory Results
06/18/25
07:43
WBC Pending
Hgb Pending
Hct Pending
Plt Count Pending
Sodium Pending
Potassium Pending
Chloride Pending
Carbon Dioxide Pending
BUN Pending
Creatinine Pending
Glucose Pending
Calcium Pending
Total Bilirubin Pending
AST Pending
ALT Pending
Alkaline Phosphatase Pending
Vital Signs:
Vital Signs
Temp Pulse Resp BP Pulse Ox
97.6 F 76 18 98/66 96
06/17/25 23:15 06/18/25 07:39 06/17/25 23:15 06/18/25 07:39 06/17/25 23:15
I&O
06/17/25 06/18/25 06/19/25
06:59 06:59 06:59
Output Total 2250 / 2250
Balance -2250 / -2250
Review of Systems
-
All other systems: Reviewed and negative
Physical Exam
-
General: No Apparent Distress
HEENT: Moist Mucous Membranes, Anicteric and PERRLA
Respiratory: Clear to Auscultation; Negative Wheezes, Rales or Rhonchi
Cardiac: Regular Rhythm and S1/S2; Negative Murmur, Rub or Gallop
GI: Soft, Nontender, Nondistended and Normal Bowel Sounds
Genito-urinary: Read (Clear pinkish urine with no clots or debris)
Musculoskeletal: No Edema
Skin: Warm and Dry; Negative Rash, Ulcers or Lesions
Neuro: Awake and AO x 3
Hematologic / Lymphatic: No Lymphadenopathy
Psych: Calm
Data Reviewed
-
Labs: Labs Reviewed by me, Discussed with Patient and Discussed with Family
[2025-06-18 08:44] LABS: Hematocrit 41.7 % (39.0-52.0); Hemoglobin 13.9 g/dL (13.0-18.0); Mean Corp Hgb Conc. 33.3 g/dL (33.0-37.0); Mean Corpuscular Volume 82.4 fL (80.0-94.0); Nucleated Red Blood Cells % 0 % (-); Platelet Count 143 10^3/uL (130-400); Red Cell Dist. Width 13.2 % (11.5-14.5)
--- NOTE | 2025-06-18 09:00 | W.PN.URO.CBU ---
Today's Communication / Plan
-
- Continue holding ASA/Plavix
- Clamp CBI @1200 noon today (ordered)
- D/c 3-way catheter at 0600 on 06/19 for voiding trial
- F/U w/ Dr. Ibarra as outpatient for cystoscopy to evaluate for BNC/stricture
D/w RN.
D/w Hospitalist.
Assessment / Plan
-
Acute urinary retention
Hemorrhagic cystitis - likely secondary to decompression hematuria + radiation cystitis
H/o prostate cancer s/p RALP/BPLND + salvage EBRT
PSA <0.02 in 2024.
20Fr 3-way catheter placed by ED (larger catheters unable to be passed due to moderate resistance per ED)
CBI initiated on admission.
Diagnosis
-
Date of Service: June 18, 2025
-
Patient Diagnosis:
Acute urinary retention
Hemorrhagic cystitis - likely secondary to decompression hematuria + radiation cystitis
H/o prostate cancer s/p RALP/BPLND + salvage EBRT
Subjective
-
Tolerating diet.
Urine outflow CLEAR on low drip CBI this AM.
Objective
-
Vital Signs
Temp Pulse Resp BP Pulse Ox
97.7 F 76 16 98/66 94
06/18/25 07:25 06/18/25 07:39 06/18/25 07:25 06/18/25 07:39 06/18/25 07:25
Intake and Output
06/17/25 06/18/25 06/19/25
06:59 06:59 06:59
Output Total 2250 / 2250
Balance -2250 / -2250
Output:
Urine, Davila 650 / 650
True Urine Output from CBI 1600 / 1600
Laboratory Results
06/18/25 07:43
Review of Systems
-
Constitutional: No Symptoms
Respiratory: No Symptoms
Cardiac: No Symptoms
Abdomen/GI: No Symptoms
: No Symptoms
Musculoskeletal: No Symptoms
Skin: No Symptoms
Neurological: No Symptoms
Physical Exam
-
General - well developed, well nourished, no acute distress
Abdomen - soft, non-tender, non-distended
- 20Fr 3-way catheter w/ clear outflow on low rate CBI
Neuro - AOx3, no motor deficits
Care Review
Data Reviewed
Discussed with: Hospitalist and Nursing
Total Time Spent with Patient (in minutes): 20
[2025-06-18 09:08] LABS: ALT (SGPT) 19 U/L (0-50); AST (SGOT) 22 U/L (17-59); Albumin 4.0 g/dl (3.5-5.0); Alkaline Phosphatase 69 U/L (38-126); Blood Urea Nitrogen 21 mg/dl (9-20); Calcium 8.9 mg/dl (8.4-10.2); Carbon Dioxide 28 mmol/L (22-30); Chloride 105 mmol/L (98-107); Estimated Creatinine Clearance 88 ml/min; Glucose 194 mg/dl (70-99); Potassium 3.9 mmol/L (3.5-5.1); Sodium 137 mmol/L (135-145); Total Protein 6.5 g/dl (6.3-8.2); eGFR > 60.00
--- NOTE | 2025-06-18 10:57 | CM ---
CM reviewed chart, patient seen bedside with daughter present, initial assessment completed.
Patient is a 75 year old male past medical history of hypertension, diabetes, hyperlipidemia, prior CVA, prostate cancer status post radical prostatectomy 2017 with local radiation in 2018, anxiety/depression, presenting for blood in the urine and
urinary retention that started this morning.
Patient resides with his in a multiple story home, bedroom on second floor, four steps to enter (through front door, six steps through side). Patient is independent with ADLS/IADLS, reports VN in past in 2017 after surgery, denies SNF hx. PCP
Shannon Mendoza, Pharmacy [facility], confirms prescription coverage. Patient denies insecurities at home. Patient hopeful for d.c tomorrow. CM will follow for all needs upon d/c.
Plan; home no needs anticipated
[2025-06-18 11:04] LABS: Hepatitis C Antibody Negative (Negative)
[2025-06-18 11:22] LABS: Glucose - Point of Care 94 mg/dl (70-99)
[2025-06-18] MEDS: NOVOLOG FLEXPEN-LOW RESISTANCE SC ×2 (11:23→16:57)
[2025-06-18 11:44] LABS: Glycohemoglobin (HgbA1c) 6.4 % (4.0-5.6)
--- NOTE | 2025-06-18 12:09 | PTCARENOTE ---
CBI clamped at noon. Pt to be transferred to as per urology. Report given at 1100. pt awaiting lunch at this time.
[2025-06-18 13:22] VITALS: BP 107/66
[2025-06-18 15:20] VITALS: BP 108/73
[2025-06-18] MEDS: LIPITOR 40 MG PO (16:22)
[2025-06-18] MEDS: TYLENOL 650 MG PO (16:22)
[2025-06-18 16:57] LABS: Hematocrit 43.2 % (39.0-52.0); Hemoglobin 14.4 g/dL (13.0-18.0)
[2025-06-18 16:57] LABS: Glucose - Point of Care 97 mg/dl (70-99)
[2025-06-18] MEDS: ELAVIL 30 MG PO (22:04)
[2025-06-18 22:11] LABS: Glucose - Point of Care 108 mg/dl (70-99)
[2025-06-18 23:20] VITALS: BP 115/66
[2025-06-19 00:50] LABS: Hematocrit 42.5 % (39.0-52.0); Hemoglobin 14.3 g/dL (13.0-18.0)
--- NOTE | 2025-06-19 07:00 | W.PN.URO.CBU ---
Today's Communication / Plan
-
- D/c Davila catheter this AM - voiding trial today
- Continue holding ASA/Plavix
- OK to resume ASA tomorrow (06/20)
- OK to resume Plavix in 3-4 days
- F/U w/ Dr. Ibarra in 3-4 weeks - plan for outpatient cystoscopy to evaluate for BNC/stricture
D/w Hospitalist.
Assessment / Plan
-
Acute urinary retention
Hemorrhagic cystitis - likely secondary to decompression hematuria + radiation cystitis
H/o prostate cancer s/p RALP/BPLND + salvage EBRT
PSA <0.02 in 2024.
20Fr 3-way catheter placed by ED (larger catheters unable to be passed due to moderate resistance per ED)
CBI initiated on admission.
Diagnosis
-
Date of Service: June 19, 2025
-
Patient Diagnosis:
Acute urinary retention
Hemorrhagic cystitis - likely secondary to decompression hematuria + radiation cystitis
H/o prostate cancer s/p RALP/BPLND + salvage EBRT
Subjective
-
Urine clear after CBI weaned/clamped yesterday.
Denies suprapubic/abdominal pain.
Objective
-
Vital Signs
Temp Pulse Resp BP Pulse Ox
97.7 F 66 16 115/66 75
06/18/25 23:20 06/18/25 23:20 06/18/25 23:20 06/18/25 23:20 06/18/25 23:20
Intake and Output
06/18/25 06/19/25 06/20/25
06:59 06:59 06:59
Output Total 2250 / 2250 4000 / 4000
Balance -2250 / -2250 -4000 / -4000
Output:
Urine, Davila 650 / 650 3450 / 3450
Urine, Voided 350 / 350
True Urine Output from CBI 1600 / 1600 200 / 200
Physical Exam
-
General - well developed, well nourished, no acute distress
Abdomen - soft, non-tender, non-distended
- clear urine outflow, CBI off
Extremities - no clubbing, no cyanosis, no edema
Care Review
Data Reviewed
Discussed with: Hospitalist
[2025-06-19 07:19] LABS: Glucose - Point of Care 96 mg/dl (70-99)
[2025-06-19 07:20] VITALS: BP 112/65
[2025-06-19] MEDS: NOVOLOG FLEXPEN-LOW RESISTANCE SC ×2 (07:21→12:44)
[2025-06-19 07:28] LABS: Hematocrit 43.3 % (39.0-52.0); Hemoglobin 14.4 g/dL (13.0-18.0); Mean Corp Hgb Conc. 33.3 g/dL (33.0-37.0); Mean Corpuscular Volume 81.5 fL (80.0-94.0); Platelet Count 152 10^3/uL (130-400); Red Cell Dist. Width 13.3 % (11.5-14.5)
[2025-06-19 07:59] LABS: Blood Urea Nitrogen 17 mg/dl (9-20); Calcium 9.0 mg/dl (8.4-10.2); Carbon Dioxide 26 mmol/L (22-30); Chloride 106 mmol/L (98-107); Estimated Creatinine Clearance 79 ml/min; Glucose 102 mg/dl (70-99); Potassium 4.5 mmol/L (3.5-5.1); Sodium 138 mmol/L (135-145); eGFR > 60.00
[2025-06-19] MEDS: LEXAPRO 5 MG PO (08:31)
[2025-06-19] MEDS: FARXIGA 10 MG PO (08:31)
--- NOTE | 2025-06-19 12:06 | W.DCSUMMARY ---
Addendum entered and electronically signed by Jeremy Ledbetter DO 06/19/25 15:33:
Yes, Hematuria is enhanced by/contributed to/associated with/due to Plavix.
Original Note:
Discharge Summary
Discharge Data
Date of Admission: 06/17/25
Date of Discharge: 06/19/25
Total time spent discharging patient (in min): 48
-
Pending Results: No
Hospital Course
Mr. Ricci is a 75-year-old male with medical history of prostate cancer (status post radical prostatectomy 2016 and local radiation 2017), CVA, [id number] diabetes mellitus, hypertension, anxiety/depression who presented with hematuria
and urinary retention. He was started on continuous bladder irrigation. His home aspirin and Plavix were held. His hematuria resolved and CBI was discontinued on 06/18. His Davila catheter was removed on the morning of 06/19, after which he was
able to void spontaneously. He will be discharged to home. His hemoglobin remained stable. His blood pressure medications were held during this admission as his blood pressure was on the low side. He should continue holding his blood pressure
medications after discharge and follow-up with his primary care physician for blood pressure monitoring and restart his blood pressure medications if needed. It is safe to restart his low-dose aspirin on 06/20 and okay to resume his Plavix on 06/23.
He will need close follow-up in the outpatient urology office in 3 to 4 weeks. If hematuria returns he will need to discontinue Plavix likely indefinitely. At time of hospital discharge he was medically stable.
General: No Apparent Distress, Comfortable and Conversant
HEENT: NormoCephalic, Moist mucous membranes, Atraumatic
Respiratory: Clear and Non Labored Respirations
Cardiac: S1/S2 and Regular Rhythm; No Rub or Gallop
GI: Soft, Non Tender, Non Distended and Normal Bowel Sounds
Musculoskeletal: No Edema, no deformity
: NO Davila
Neuro: Awake, Alert, no tremor
Psych: Calm and cooperative
Discharge Plan
-
Patient Disposition: Home (Routine Discharge)
Discharge Diagnosis/Procedures: Hemorrhagic cystitis and urinary retention
Activity Restrictions/Additional Instructions:
Mr. Ricci is a 75-year-old male with medical history of prostate cancer (status post radical prostatectomy 2016 and local radiation 2017), CVA, [id number]-kjxqagiit diabetes mellitus, hypertension, anxiety/depression who presented with hematuria
and urinary retention. He was started on continuous bladder irrigation. His home aspirin and Plavix were held. His hematuria resolved and CBI was discontinued on 06/18. His Davila catheter was removed on the morning of 06/19, after which he was
able to void spontaneously. He will be discharged to home. His hemoglobin remained stable. His blood pressure medications were held during this admission as his blood pressure was on the low side. He should continue holding his blood pressure
medications after discharge and follow-up with his primary care physician for blood pressure monitoring and restart his blood pressure medications if needed. It is safe to restart his low-dose aspirin on 06/20 and okay to resume his Plavix on 06/23.
He will need close follow-up in the outpatient urology office in 3 to 4 weeks. If hematuria returns he will need to discontinue Plavix likely indefinitely. At time of hospital discharge he was medically stable.
Referrals:
Shannon Mendoza PA-C [Family Provider, Internal Medicine]
Prescriptions:
Continued
escitalopram oxalate 5 mg Tablet
5 mg PO DAILY
cyanocobalamin (vitamin B-12) 1,000 mcg Tablet
1,000 mcg PO DAILY
travoprost 0.004 % Drops
1 drp BOTH EYES HS
therapeutic multivitamin Tablet
1 tab PO BID
guar gum Packet
2 tbsp PO DAILY
amitriptyline 10 mg Tablet
30 mg PO HS
ascorbate calcium (vitamin C) 500 mg Tablet
500 mg PO DAILY
magnesium oxide 500 mg magnesium Tablet
500 mg PO DAILY
vitamin E 268 mg (400 unit) Capsule
268 mg PO BID
Visbiome 112.5 billion cell Capsule
1 cap PO DAILY
Jardiance 25 mg Tablet
25 mg PO DAILY
atorvastatin 40 mg Tablet
40 mg PO QPM Qty: 30 0RF
niacinamide 500 mg Capsule
500 mg PO DAILY
Held
aspirin 81 MG tablet,delayed release (DR/EC)
81 mg PO HS
Hold Instructions: Restart on 06/20/2025
atenolol 50 MG tablet
50 mg PO DAILY
Hold Instructions: Has been held during this admission for borderline low blood pressure, monitor blood pressure in the outpatient setting and restart as needed
lisinopril 40 mg Tablet
40 mg PO HS
Hold Instructions: Has been held during this admission for borderline low blood pressure, monitor blood pressure in the outpatient setting and restart as needed
clopidogrel 75 mg tablet
75 mg PO DAILY
Hold Instructions: Restart on 06/23/2025
Discharge Orders:
Discharge Patient (As Directed); Ordered 06/19/25
Ordered By: Jeremy Ledbetter
Discharge Date and Time
Print Language: WELSH
--- NOTE | 2025-06-19 12:30 | CM ---
CM following re: discharge planning.
Reviewed pt's chart, met with pt.
Discharge order noted. Pt is aware, expressed his agreement and he stated he [place] and will walk home or his spouse will transport.
Pt has no Medicare yet. No IMM review required.
No after care VN needs identified.
D/C plan: home no needs.
[2025-06-19 12:40] LABS: Glucose - Point of Care 94 mg/dl (70-99)
[2025-06-19 12:44] VITALS: BP 124/74
--- NOTE | 2025-06-19 14:25 | PN.CDI ---
CDI
- -
CDI:
Physician Documentation Request
Admit Date: 06/17/25 20:14
Dear Doctor Khloe,
Please review the following and provide your response in the progress notes.
Clinical Indicators:
06/19 Discharge Summary
#...medical history of prostate cancer
#...(status post radical prostatectomy 2016 and local radiation 2017), ...
#...presented with hematuria and urinary retention.
#...home aspirin and Plavix were held.
#...hematuria resolved and CBI was discontinued on 06/18.
#...hemoglobin remained stable.
#...It is safe to restart his low-dose aspirin on 06/20 and okay to resume his Plavix on 06/23.
#...If hematuria returns he will need to discontinue Plavix likely indefinitely.
Based on the above and your clinical assessment,please clarify the relationship between these conditions:
Yes, Hematuria is enhanced by/contributed to/associated with/due to Plavix.
No, Hematuria is not enhanced by/contributed to/associated with/due to Plavix but it is due to ___. (Please specify)
Other(please specify)
Unable to determine
Use of terms such as suspected, likely, concern for, or probable (associated with a specific diagnosis that is being evaluated, monitored, or treated as if it exists) are acceptable and can be coded in the inpatient setting, when documented at the
time of discharge.
Thank you,
Jacinta Muniz DEVELOPER [employer]ANG[employer]
CDI Specialist
Please contact via tiger text
Please use your independent medical judgment in providing your response.
== END 2025-06-19 13:46 | disposition home or self-care (01) | DRG 699 ==
LOC: 2 SOUTH 20:14
PROVIDERS: Internal Medicine; Physician Assistant; ADMITTING PHYSICIAN Hospitalist; ATTENDING PHYSICIAN Internal Medicine; CONSULT PHYSICIAN Surgery; EMERGENCY PHYSICIAN Emergency Medicine; FAMILY PHYSICIAN Physician Assistant
DX: N30.41 Irradiation cystitis with hematuria (principal); D68.32 Hemorrhagic disorder due to extrinsic circulating anticoagulants; E11.9 Type 2 diabetes mellitus without complications; I10 Essential (primary) hypertension; Z85.46 Personal history of malignant neoplasm of prostate; Z92.3 Personal history of irradiation; Z86.73 Personal history of transient ischemic attack (TIA), and cerebral infarction without residual deficits; Z90.79 Acquired absence of other genital organ(s); F32.A Depression, unspecified; F41.9 Anxiety disorder, unspecified; E78.00 Pure hypercholesterolemia, unspecified; Z79.02 Long term (current) use of antithrombotics/antiplatelets; Z79.82 Long term (current) use of aspirin
CPT/HCPCS: 51702; 80048; 80053; 81003; 81015; 82962; 83036; 85014; 85018; 85025; 85027; 85610; 86803; 87086; 96374; 99285

== ENCOUNTER → 2025-07-07 13:10 | Outpatient (REF) | payer BC, SELFPAY ==
[2025-07-07 14:43] LABS: ALT (SGPT) 27 U/L (0-50); AST (SGOT) 25 U/L (17-59); Albumin 4.6 g/dl (3.5-5.0); Alkaline Phosphatase 79 U/L (38-126); Blood Urea Nitrogen 22 mg/dl (9-20); Calcium 9.2 mg/dl (8.4-10.2); Carbon Dioxide 26 mmol/L (22-30); Chloride 106 mmol/L (98-107); Glucose 176 mg/dl (70-99); Potassium 4.8 mmol/L (3.5-5.1); Sodium 139 mmol/L (135-145); Total Protein 7.0 g/dl (6.3-8.2); eGFR 48.55
[2025-07-07 15:19] LABS: PSA, Total - Diagnostic < 0.06 ng/ml (0.0-4.0)
== END ==
LOC: REG 13:10
PROVIDERS: ATTENDING PHYSICIAN Specialist; FAMILY PHYSICIAN Physician Assistant
DX: R31.0 Gross hematuria (principal); Z01.812 Encounter for preprocedural laboratory examination
CPT/HCPCS: 36415; 80053; 84153

== ENCOUNTER → 2025-07-13 13:01 | Outpatient (REF) | payer BC, SELFPAY | LOC: RAD 13:01 | PROVIDERS: ATTENDING PHYSICIAN Specialist; FAMILY PHYSICIAN Physician Assistant | DX: C61 Malignant neoplasm of prostate (principal); R31.0 Gross hematuria | CPT/HCPCS: 74178; Q9967 ==